=== PATIENT | female | born 1995 | race African-American/Black ===

== ENCOUNTER → 2018-09-28 11:00 | Outpatient (CLI) | payer MEDICAID, SELFPAY ==
[2018-09-28 10:59] VITALS: BMI 41.3
[2018-10-04 16:20] LABS: HPV Reflexed? NOT INDICATED
== END ==
PROVIDERS: Referring Provider Obstetrics & Gynecology; Visit Provider Obstetrics & Gynecology
DX: Z12.4 Encounter for screening for malignant neoplasm of cervix (principal)
CPT/HCPCS: 87624; 88175; G0145

== ENCOUNTER 2019-02-14 02:53 | Emergency (ER) | payer MEDICAID, SELFPAY ==
[2019-02-08 12:00] VITALS: BMI 41.3
[2019-02-14 02:54] VITALS: BP 154/91; PULSE 85; RESP 15; TEMP 37.1; O2SAT 100; BMI 39.4
--- NOTE | 2019-02-14 03:46 | ED.DCSUM_ITS ---
- ER Visit Summary Date of Service: 02/14/19 Chief Complaint: Right upper quadrant abdominal pain History of Present Illness: The patient is a 23 F there is no past medical history. No prior abdominal surgeries. Patient states tonight around 9 PM had mild right upper quadrant abdominal pain that resolved and then returned and was worse. Not associated with eating. No fever. Nausea but no vomiting or diarrhea. No melena. Last menstrual period was 01/21/2019. She denies any vaginal bleeding or discharge. No dysuria. No abdominal trauma. She has had pain like this before with a negative ultrasound 3 years ago. Physical Examination: Well-appearing young female. Vital signs are stable and afebrile. HEENT exam normal. Neck nontender. No lymphadenopathy. Lungs clear to auscultation bilaterally. Heart regular rhythm no murmur. Abdomen is soft and nontender. Normal bowel sounds no peritoneal signs. The entire abdomen is completely nontender. She has no epigastric or right upper quadrant tenderness. No Caldwell sign. No McBurney's point tenderness. Nondistended normal bowel sounds without hernias or masses. Patient is moving all 4 extremities. Back nontender. Neurologically she is awake and alert. Test Results: CBC shows no acute abnormality. White count of 7. Hemoglobin 13. BMP unremarkable. Normal creatinine and gap. Liver enzymes normal. Lipase normal at 190. Repeat exam the patient is doing well at 4:22 AM. Abdomen is benign. She feels fine. She will be discharged home with outpatient follow-up. Emergency Department Course and Treatment: Clinically the patient's exam is benign and nontender. Treatment Plan: Follow-up with outpatient primary care physician. She may need a repeat ultrasound of her gallbladder HIDA scan. Disposition: Discharge Impression: Right upper quadrant abdominal pain of uncertain etiology resolved This note was generated with Solyndra dictation software. It may contain incorrect words, spelling, and punctuation that were not noted in review of the chart prior to signing ED Disposition - Plan for ED Patient: Disposition: Home or Assisted Living Instructions: ED Abdominal Pain Unkn Cause Referrals: Opal Espinosa MD [Primary Care Provider] - 1-2 Weeks Additional Instructions: Return if feeling worse or develop a fever or worsening pain. Follow-up your primary care doctor they may have to do an ultrasound or HIDA scan to look for potential gallbladder disease. Your labs were unremarkable tonight.
[2019-02-14 03:58] LABS: Absolute Lymphocyte Count 3.12 X10^3/ul (0.83-4.51); Absolute Neutrophil Count 3.1 X10^3/uL (2.0-7.7); Basophil# 0.02 X10^3/uL; Basophil% 0.3 % (0-1); Eosinophil# 0.47 X10^3/uL; Eosinophils% 6.6 % (0-5); Hematocrit 40.5 % (37-47); Hemoglobin 13.5 g/dl (12.0-15.0); Lymphocyte # 3.12 X10^3/ul (4.0); Lymphocyte % 43.8 % (19-41); Mean Corp Hgb Conc 33.3 g/gl (32-36); Mean Corpuscular Hgb 28.6 pg (27.0-32.0); Mean Corpuscular Volume 85.8 fL (81-99); Mean Platelet Vol. 9.5 fl (6.2-12.0); Monocyte# 0.46 X10^3/uL; Monocyte% 6.5 % (0-10); Neutrophil # 3.05 X10^3/uL (2.7-7.7); Neutrophil % 42.7 % (47-70); Platelet Count 288 K/mm3 (150-450); RBC Distribution Width CV 12.9 % (11.6-14.6); RBC Distribution Width SD 39.9 fl (35.1-43.9); Red Blood Count 4.72 M/mm3 (4.2-5.4); White Blood Count 7.1 K/mm3 (4.4-11.0)
[2019-02-14 04:00] LABS: POSITIVE COUNT NO; POSITIVE DIFFERENTIAL NO; POSITIVE MORPHOLOGY NO
[2019-02-14 04:11] LABS: AST(SGOT) 14 U/L (15-37); Alanine Aminotransfer ALT/SGPT 25 U/L (13-56); Albumin, Serum 3.5 g/dL (3.2-5.0); Alkaline Phosphatase 60 U/L (45-117); Anion Gap 6 (5-15); BUN 13 mg/dL (7-18); Bilirubin, Direct 0.09 mg/dL (0.00-0.30); Calcium,Total 8.6 mg/dL (8.5-10.1); Chloride 109 mmol/L (98-107); Creatinine, Serum 0.56 mg/dL (0.55-1.02); EST Glomerular Filtration Rate 140 mL/min (>60); Est Glom Filt Rate - Afr Amer 170 mL/min (>60); Estimated Creatinine Clearance 146.26 ml/min; Globulin 3.3 g/dL (2.2-4.2); Glucose 101 mg/dL (74-106); Lipase 190 U/L (73-393); Potassium 3.9 mmol/L (3.5-5.1); Protein, Total 6.8 g/dL (6.4-8.2); Sodium Level 141 mmol/L (136-145)
[2019-02-14 04:38] VITALS: BP 134/94; PULSE 88; O2SAT 100
== END 2019-02-14 04:39 | disposition home or self-care (01) ==
PROVIDERS: Emergency Provider Emergency Medicine; Family Provider Internal Medicine; PCP Internal Medicine
DX: R10.11 Right upper quadrant pain (principal); R11.0 Nausea; Z79.899 Other long term (current) drug therapy
CPT/HCPCS: 80048; 80076; 83690; 85025; 99283; A4216

== ENCOUNTER → 2019-02-21 09:39 | Outpatient (CLI) | payer MEDICAID, SELFPAY ==
[2019-02-15 15:00] VITALS: BMI 39.4
--- NOTE | 2019-02-21 09:41 | US_ITS ---
STUDY: ABDOMINAL ULTRASOUND - RIGHT UPPER QUADRANT REASON FOR VISIT: Female, 23 years old. Right upper quadrant pain. TECHNIQUE: Ultrasound evaluation of the right upper quadrant was performed with real-time and static byers-scale imaging. TECHNICAL QUALITY: Limited. Examination limited due to obesity. COMPARISON: Previous ultrasound 01/28/2015. FINDINGS: Liver: The liver measures 15.1 cm. There is increased echogenicity consistent with fatty infiltration. The bile ducts are within normal limits. There is hepatic color flow. The direction of portal flow is hepatopetal. There is no demonstrated mass lesion. Gallbladder: In the gallbladder, extensive echoes are seen consistent with gallstones filling the lumen. Thickened wall measuring 8 mm. No tenderness. Common Bile Duct (C.B.D.): The common bile duct is not visualized. Pancreas: Normal size of the head, body and tail of the pancreas. There is normal echogenicity of the pancreas. There is no demonstrated pancreatic mass or cyst. Right Kidney: Normal size of the right kidney. The right kidney measures 12.1 cm. Normal renal cortex. The right cortex measures 2.1 cm. There is no demonstrated renal mass or cyst. There is no right hydronephrosis. US/Abdomen Limited IMPRESSION: Gallbladder is full of stones with a thickened wall. No tenderness. Electronically Signed: Michel Padilla MD at 17:48 EDT , Service support ,
[2019-02-21 10:52] LABS: Anion Gap 3 (5-15); BUN 9 mg/dL (7-18); BUN/Creat Ratio 15.3 RATIO (10-20); Calcium,Total 8.1 mg/dL (8.5-10.1); Chloride 110 mmol/L (98-107); Creatinine, Serum 0.59 mg/dL (0.55-1.02); EST Glomerular Filtration Rate 134 mL/min (>60); Est Glom Filt Rate - Afr Amer 163 mL/min (>60); Glucose 87 mg/dL (74-106); Potassium 3.9 mmol/L (3.5-5.1); Sodium Level 140 mmol/L (136-145)
== END ==
PROVIDERS: Family Provider Internal Medicine; PCP Internal Medicine; Referring Provider Nurse Practitioner Family; Visit Provider Nurse Practitioner Family
DX: I10 Essential (primary) hypertension (principal); R10.11 Right upper quadrant pain
CPT/HCPCS: 36415; 76705; 80048

== ENCOUNTER 2019-03-10 07:49 | Day surgery (SDC) | payer MEDICAID, SELFPAY ==
[2019-02-25 15:05] VITALS: BMI 39.4
[2019-03-08 11:09] VITALS: BMI 39.4
--- NOTE | 2019-03-10 07:58 | EKG12_ITS ---
Test Reason : PRE OP Blood Pressure : / mmHG Vent. Rate : 080 BPM Atrial Rate : 080 BPM P-R Int : 162 ms QRS Dur : 082 ms QT Int : 360 ms P-R-T Axes : 028 052 034 degrees QTc Int : 415 ms Normal sinus rhythm Normal ECG When compared with ECG of 09-NOV-2014 03:52, T wave amplitude has increased in Anterior leads Confirmed by PATRICK SORIANO ([id number]), editorial manager JOLEEN SIMON ([id number]) on 03/14/2019 2:40:58 PM Referred By: Jeremy Alonso Confirmed By:NIKITA SORIANO
[2019-03-10 08:09] LABS: Internal QC Validated? YES +Cl - CLEAR BKGD; Pregnancy, Urine Negative Negative
[2019-03-10 08:16] VITALS: BP 137/76; PULSE 79; RESP 14; TEMP 36.6; O2SAT 100; BMI 38.8
--- NOTE | 2019-03-10 08:41 | HP.PCM_ITS ---
Problem List (1) Right upper quadrant abdominal pain Status: Acute History and Physical Date of Admission: 03/10/19 Intake Vital Signs 02/25/19 Body Mass Index (BMI) 39.4 02/25/19 Height 5 ft 5 in 02/25/19 Weight: 240 lb 02/25/19 Body Mass Index (BMI) 39.9 02/25/19 Blood Pressure 151/104 H 02/25/19 Blood Pressure Location Rt brachial 02/25/19 Blood Pressure Position Sitting 02/25/19 Respiratory Rate 14 02/25/19 Pulse Rate 83 02/25/19 Pulse Source Monitor 02/25/19 Temperature 98.6 F 02/25/19 Temperature Source Oral 02/25/19 Pulse Ox 100 02/25/19 Oxygen Delivery Method room air Intake Visit Reasons: CHOLELITHIASIS, U/S @ [facility] Chief Complaint: FU [facility] ER - Pos Gallbladder Child Adolescent Psychiatrist Required: No Is patient in pain?: No Allergies No Known Allergies Allergy (Verified 02/25/19 15:01) Medications levonorgestrel 20 mcg/24 hours (5 yrs) 52 mg intrauterine device 1 insert INTRAUTERINE ONCE 09/28/18 [History Confirmed 02/25/19] phentermine 37.5 mg capsule 37.5 mg PO DAILY #30 cap 02/08/19 [Rx Confirmed 02/25/19] [facility] Medical History Right upper quadrant abdominal pain (Acute) History of pre-eclampsia (Acute) Cervical insufficiency during in third trimester, antepartum (Acute) BMI greater than 40 (Chronic) Surgical History History of tonsillectomy (Acute) History of cervical cerclage (Acute) Family History Mother Diabetes Hypertension Aunt Breast cancer Uncle Colon cancer Father Hypertension Social History Smoking Status: Never smoker alcohol intake: current details: social substance use type: does not use caffeine: Yes what type of physical activity do you participate in: none seatbelt use: always do you feel safe at home: Yes additional social history: Engaged- employed HPI HPI HPI: GUNNER NATION, is a 23 F who presents to the office today for HPI HPI HPI: GUNNER NATION, is a 23 F who presents to the office today for right upper quadrant pain. The patient reports that 3 years ago she was having problems with her right upper quadrant and had an ultrasound which only showed sludge. She says that recently she had one attack which lasted longer than her old attacks and it was in the right upper quadrant radiating to the back. She had nausea but no vomiting. She has not had any attacks since. She had a recent ultrasound which showed the gallbladder full of gallstones. ROS General General: No weight change or fatigue Cardio Cardiovascular: No murmur, pacemaker, heart disease, atrial fibrillation, high blood pressure, heart attack, heart stent, palpitations, shortness of breat with exertion or chest pain Psych Psychiatric: No depression or anxiety Resp Respiratory: No shortness of breath, No sleep apnea, No cough, No COPD, No asthma, No emphysema, No wheezing Gastro Gastrointestinal: No abdominal pain, No nausea or vomiting, No diarrhea, No constipation, No blood in stool, No acid reflux, No hemorrhoids, No ulcers, Yes gallbladder problem, No black,tarry stools Jose Hematologic: No blood thinners Exam Const General: cooperative Orientation: alert, oriented x3 Resp Effort & Inspection: normal respiratory effort Auscultation: clear to auscultation bilaterally Cardio Rate: regular rate Rhythm: regular rhythm Heart Sounds: no murmurs GI Inspection: non-distended Palpation: soft, nontender Assessment & Plan Problems 1. Calculus of gallbladder without cholecystitis without obstruction K80.20 Plan The patient has gallstones and biliary colic. I did offer her laparoscopic cholecystectomy. I discussed the procedure in detail with the patient. I discussed the risks, benefits, and alternatives of the procedure. I discussed the risks including but not limited to bleeding, infection, injury to surrounding organs such as the liver, bile duct, bowels. I did discuss the possibility of having to convert to an open procedure as well as the possibility that if any injuries occurred this may necessitate further surgery at a tertiary care center. Jeremy Alonso MD Pager: [facility] [address] [place] [address] Office:
--- NOTE | 2019-03-10 09:30 | GALL_PTH ---
PATIENT: GUNNER SIMON LOC[place] [facility] [place][id number] AGE/SX: 23/F ROOM: RE03/10/[address]: Dr. Jeremy Alonso MD : [id number] BED: DIS: 03/10/2019 SPEC #: [id number] RECD: 03/10/19 12:22 STATUS: NOREEN RANJIT #: [id number] FENG: 03/10/19 09:[address]: Jeremy Alonso DEPT: SURGICAL PATHOLOGY RECD BY: Brady Aguiar ENTERED: 03/10/19 13:38 SP TYPE: ROGELIO HERR DR: Dr. Opal Espinosa MD Tissues: Gallbladder, NOS Procedures: Surgery Specimen Level III HEADER OPERATION: Laparoscopic cholecystectomy with IOC PRE-OP DIAGNOSIS: Calculus of gallbladder without cholecystitis without obstruction TISSUE SUBMITTED: Gallbladder MICROSCOPIC DIAGNOSIS Gallbladder, cholecystectomy: Chronic cholecystitis and cholelithiasis. SJ:yesenia 03/11/19 MICROSCOPIC DESCRIPTION Slides are reviewed. GROSS DESCRIPTION Received is one container labeled with the patient's name and designated gallbladder. The specimen consists of a gallbladder measuring 8.5 cm in length and 2.5 cm in diameter. The external surface is pink-simmons, smooth and glistening for the most part. Focally it is granular, hemorrhagic and contains cautery artifact. The gallbladder contains a small amount of green-yellow mucoid bile and distended with multiple multifaceted yellowish-orange stones and stone fragments measuring in aggregate 6 x 6.5 x 1.5 cm and 0.3 to 0.5 cm in greatest dimension. One of the stones is also present at the cyst duct. The mucosa is bile-stained and without any mass lesions. The gallbladder wall measures 0.2 cm in thickness. Industrial Machine Assembler sections from the gallbladder and the cystic duct are submitted in one cassette. / SJ:yesenia 03/10/19 TC:4 CPT: 78345
--- NOTE | 2019-03-10 09:46 | RAD_ITS ---
STUDY: INTRAOPERATIVE CHOLANGIOGRAM. REASON FOR EXAM: Female, 23 years old. Laparoscopic cholecystectomy. FLUOROSCOPY TIME (if supplied): (0:38) minutes/seconds. TECHNIQUE: An intraoperative cholangiogram was performed by the surgeon. Imaging was submitted. COMPARISON: None. FINDINGS: The common bile duct is not dilated. No intraluminal filling defect is seen. There is free flow of contrast into the duodenum. RAD/Cholangiogram/ O R,Initial IMPRESSION: Unremarkable intraoperative quadrant. Electronically Signed: Anurag Sotelo, at 14:04 EDT , Service support ,
[2019-03-10] MEDS: Bupiv/Epi 0.25% 30 ML Vial (10:31)
--- NOTE | 2019-03-10 10:36 | PCM.OPRPT ---
Problem List (1) Right upper quadrant abdominal pain Status: Acute Report of Operation Date of Procedure: 03/10/19 Pre-Operative Diagnosis: Cholelithiasis Post-Operative Diagnosis: Same Surgery/Procedure Performed:: Laparoscopic cholecystectomy with intraoperative cholangiogram Specimen's removed: Gallbladder and contents Description of Procedure: After obtaining informed consent patient was brought back to the operating room. General anesthesia was induced. The abdomen was prepped and draped in usual sterile fashion. A small midline incision was made superior to the umbilicus and deepened to the level of fascia. The fascia was elevated and incised. Next the peritoneum was elevated and incised in the same fashion. Finger sweep was performed and the Weller trocar was placed into the abdomen. The balloon was inflated. The abdomen was inflated to 15 mmHg. Next a camera was introduced into the abdomen and the abdomen was inspected. Next under direct visualization three 5-mm ports were placed one subxiphoid and 2 subcostal. Next the gallbladder was elevated and retracted toward the right shoulder. The peritoneum was stripped from the gallbladder. The infundibulum was located and retracted laterally. Next the triangle of Calot was dissected and the cystic duct and cystic artery were identified. Cholangiograms were performed. The Smith clamp was used to clamp across the infundibulum and the catheter needle was inserted into the gallbladder. Under fluoroscopy contrast was instilled into the gallbladder and the common duct, cystic duct as well as proximal hepatic ducts were identified. There was good filling of the duodenum. There were no filling defects noted in the common bile duct. The clamp was removed as well as the needle and the infundibulum was grasped once more. Three hemolock clips were placed across the cystic duct. The cystic duct was then divided leaving 2 clips on the stump. The cystic artery was clipped and divided in the same fashion. The hook cautery was then used to take the gallbladder off of the gallbladder bed. Hemostasis was obtained. Gallbladder fossa was irrigated and no active bleeding or bile leakage was noted. Next the camera switched to a 5 mm camera and introduced in the subxiphoid port. An Endopouch bag was placed through the umbilical port and the gallbladder was placed into it. The gallbladder was then removed through the umbilical incision. The camera was then reinserted through the umbilical port. The gallbladder fossa was inspected once more and noted to be hemostatic with no leaking bile. The abdomen was suctioned dry. The 5 mm ports were removed under direct visualization. The umbilical port was then removed and the air was removed from the abdomen. Next using an 0 Vicryl suture the umbilical fascia was closed in a [id number] fashion. The umbilical port site was irrigated local anesthetic was administered to all the incisions. All the incisions were closed with interrupted subcuticular 4-0 Monocryl sutures followed by Steri-Strips and dressings. The patient was awoken and taken to PACU in stable condition. - Admit VTE Documentation VTE Mechan Device Prophylaxis: SCD's
--- NOTE | 2019-03-10 10:40 | DCINST_ITS ---
Discharge Diet: Light diet - advance as tolerated Discharge Activity: Return to Normal Activity, May Not Drive - for 2-3 days or while taking narcotic pain medicataions., - - Do not drive, work heavy equipment or sign legal documents for 24 hours. May shower in (days): 1 - with the bandage in place. Lifting Restrictions: 20 lbs for 2 weeks Additional Activity Instructions:: Pain medication may cause nausea. You should typically eat light foods as you take your pain medications. Pain medication may also cause constipation. If this is a problem for you, please discuss with your doctor. Call your doctor if your incision/area has: Continuous Slow Oozing, Sudden Increased Bleeding, Increased Pain/ Swelling, Increased Redness, Foul Smelling Discharge, Fever of 101 or Higher Call your doctor if you observe: Fever of 101 or Higher Suture Line Care: Avoid Pulling/Pushing, Avoid Pinching/Bending Additional Dressing/Incision Instructions:: Leave operative bandaids on for 2 days. When you remove dressing, leave Steri-Strips on until your follow-up appointment, or until the Steri-Strips fall off on their own. Allergies/Adverse Reactions: Allergies No Known Allergies Allergy (Verified 03/01/19 11:04) Medications to take at Discharge levonorgestrel 20 mcg/24 hours (5 yrs) 52 mg intrauterine device 1 insert INTRAUTERINE ONCE 09/28/18 blood pressure monitor kit See Dose Instructions .ROUTE .MEDSUPPLY #1 ea 03/01/19 labetalol 100 mg tablet 100 mg PO BID tab 03/08/19 Oxycodone HCl/Acetaminophen [Percocet 5/325] 1 - 2 tablet PO Q4H PRN PRN 7 Days #30 tablet 03/10/19 The following prescriptions were given: Oxycodone HCl/Acetaminophen [Percocet 5/325] 1 - 2 tablet PO Q4H PRN PRN 7 Days #30 tablet PRN Reason: Pain Primary Care Physician: Opal Espinosa MD [Primary Care Provider] - Test Results: Test results from this visit will be discussed in further detail at your follow- up appointment, if applicable. Please Follow Up With: Jeremy Alonso MD When: Please call to schedule 2 week follow up appointment. [phone]
[2019-03-10 10:54] VITALS: BP 137/76; BP 141/83; PULSE 84; RESP 16; TEMP 36.2; O2SAT 96
[2019-03-10 11:00] VITALS: BP 137/76; BP 138/81; PULSE 79; RESP 16; O2SAT 97
[2019-03-10 11:15] VITALS: BP 133/80; BP 137/76; PULSE 72; RESP 16; O2SAT 99
[2019-03-10 11:30] VITALS: BP 130/69; BP 137/76; PULSE 70; RESP 16; TEMP 36.2; O2SAT 99
[2019-03-10] MEDS: Acetaminophen 325 MG Tablet PO (12:13)
[2019-03-10] MEDS: oxyCODONE 5 MG Tablet PO (12:13)
[2019-03-10 13:40] VITALS: BP 114/55; BP 137/76; PULSE 77; RESP 18; TEMP 36.3; O2SAT 100
== END 2019-03-10 13:45 | disposition home or self-care (01) ==
LOC: SDC 07:51 → AC 07:52
PROVIDERS: Anesthesiology; Family Provider Internal Medicine; PCP Internal Medicine; Referring Provider Surgery; Visit Provider Surgery
PROC: (CPT 47610; principal; 2019-03-10 09:10)
DX: K80.10 Calculus of gallbladder with chronic cholecystitis without obstruction (principal); I10 Essential (primary) hypertension; Z79.899 Other long term (current) drug therapy
CPT/HCPCS: 47563; 74300; 76000; 81025; 88304; 93005; J7120; J2405

== ENCOUNTER → 2019-06-29 17:09 | Outpatient (CLI) | payer OTHER, SELFPAY ==
[2019-06-29 13:34] VITALS: BMI 38.8
[2019-06-29 20:31] LABS: Chlamydia Trachomatis by PCR Negative (Negative); Neisserai gonorrhoeae by PCR Negative (Negative); Probe Check PASS; Sample Adequacy Control PASS; Specimen Processing Control PASS
[2019-07-04 13:18] LABS: HSV Culture Without Typing Positive (.)
== END ==
PROVIDERS: Family Provider Internal Medicine; PCP Internal Medicine; Referring Provider Nurse Practitioner Women's Health; Visit Provider Nurse Practitioner Women's Health
DX: N90.89 Other specified noninflammatory disorders of vulva and perineum (principal)
CPT/HCPCS: 87255; 87491; 87591

== ENCOUNTER → 2020-01-16 12:16 | Outpatient (CLI) | payer MEDICAID, SELFPAY ==
[2020-01-16 12:08] VITALS: BMI 38.8
[2020-01-16 12:58] LABS: Absolute Lymphocyte Count 2.71 X10^3/uL (0.83-4.51); Basophil# 0.04 X10^3/uL; Basophil% 0.5 % (0-1); Eosinophil# 1.06 X10^3/uL; Hematocrit 40.2 % (37-47); Hemoglobin 13.2 g/dL (12.0-15.0); Lymphocyte # 2.71 X10^3/ul (4.0); Lymphocyte % 33.1 % (19-41); Mean Corp Hgb Conc 32.8 g/dL (32-36); Mean Corpuscular Hgb 28.9 pg (27.0-32.0); Mean Platelet Vol. 9.1 fl (6.2-12.0); Monocyte# 0.39 X10^3/uL; Monocyte% 4.8 % (0-10); NRBC Flagged by Analyzer 0 % (0-5); Neutrophil # 3.96 X10^3/uL (2.7-7.7); Neutrophil % 48.4 % (47-70); Platelet Count 290 K/mm3 (150-450); RBC Distribution Width CV 13.1 % (11.6-14.6); RBC Distribution Width SD 41.8 fl (35.1-43.9); Red Blood Count 4.57 M/mm3 (4.2-5.4); White Blood Count 8.2 K/mm3 (4.4-11.0)
[2020-01-16 13:26] LABS: ALB/GLOB Ratio 0.9 RATIO (0.9-2.4); AST(SGOT) 19 U/L (15-37); Alanine Aminotransfer ALT/SGPT 36 U/L (13-56); Albumin, Serum 3.5 g/dL (3.2-5.0); Alkaline Phosphatase 63 U/L (45-117); Anion Gap 5 (5-15); BUN 7 mg/dL (7-18); BUN/Creat Ratio 10.9 RATIO (10-20); Calcium,Total 8.5 mg/dL (8.5-10.1); Chloride 110 mmol/L (98-107); Creatinine, Serum 0.64 mg/dL (0.55-1.02); EST Glomerular Filtration Rate 120 mL/min (>60); Est Glom Filt Rate - Afr Amer 145 mL/min (>60); Globulin 3.7 g/dL (2.2-4.2); Glucose 125 mg/dL (74-106); Glucose Challenge Gest 1H 50g 125 mg/dL (70-140); Potassium 3.6 mmol/L (3.5-5.1); Protein, Total 7.2 g/dL (6.4-8.2); Sodium Level 140 mmol/L (136-145)
[2020-01-16 13:33] LABS: Hemoglobin A1c 5.5 % (4.2-6.3)
[2020-01-16 13:58] LABS: HIV - WCH Non-Reactive (Nonreactive); Hepatitis B Surface Antigen Non-Reactive (Nonreactive); Hepatitis C Antibody Non-Reactive (Nonreactive); Rubella IgG 86.9 IU/mL
[2020-01-16 16:04] LABS: Protein, Urine (Random) 6.4 mg/dL (<11.9); Protein:Creat Ratio 107 mg/g CRE (0-200)
[2020-01-16 16:06] LABS: Amphetamine Urine VISTA NEGATIVE (<1000 ng/mL); Barbiturate Urine VISTA NEGATIVE (< 200 ng/mL); Benzodiazepine Urine VISTA NEGATIVE (< 200 ng/mL); Cocaine Urine VISTA NEGATIVE (< 300 ng/mL); Ecstacy Urine VISTA NEGATIVE (< 500 ng/mL); Methadone Urine VISTA NEGATIVE (< 300 ng/mL); PCP Urine VISTA NEGATIVE (< 25 ng/mL); THC Urine VISTA NEGATIVE (< 50 ng/mL); Vista UDS pH Range 6
[2020-01-16 18:00] LABS: Chlamydia Trachomatis by PCR Negative (Negative); Neisserai gonorrhoeae by PCR Negative (Negative); Probe Check PASS; Sample Adequacy Control PASS; Specimen Processing Control PASS
[2020-01-19 02:09] LABS: Rapid Plasmin Reagin (RPR) NONREACTIVE (NONREACTIVE)
== END ==
PROVIDERS: PCP Internal Medicine; Referring Provider Obstetrics & Gynecology; Visit Provider Obstetrics & Gynecology
DX: O09.90 Supervision of high risk pregnancy, unspecified, unspecified trimester (principal); O10.919 Unspecified pre-existing hypertension complicating pregnancy, unspecified trimester; O09.299 Supervision of pregnancy with other poor reproductive or obstetric history, unspecified trimester; Z3A.00 Weeks of gestation of pregnancy not specified; Z86.32 Personal history of gestational diabetes
CPT/HCPCS: 36415; 80053; 80307; 82570; 82950; 83036; 84156; 85025; 86592; 86703; 86762; 86803; 86850; 86900; 86901; 87086; 87088; 87340; 87491; 87591

== ENCOUNTER → 2020-01-19 09:11 | Outpatient (CLI) | payer MEDICAID, SELFPAY ==
[2020-01-16 12:08] VITALS: BMI 38.8
--- NOTE | 2020-01-19 09:16 | US_ITS ---
STUDY: FIRST TRIMESTER OBSTETRICAL ULTRASOUND REASON FOR EXAM: Female, 24 years old viability LMP: November 22, 2019. TECHNIQUE: Transvaginal TECHNICAL QUALITY: Adequate. PRIOR ULTRASOUND: None. FINDINGS: There is visualization of a single gestational sac in a normal intrauterine position. The mean sac diameter (MSD) measures 1.1 cm, indicating an estimated gestational age (EGA) of 5 weeks, 5 days. The gestational sac shape is within normal limits. There is a visualized yolk sac. The yolk sac measures 2 mm. The placenta is non-visualized. There is visualization of a live embryo. The crown-rump length (CRL) measures 7 mm, indicating an estimated gestational age (EGA) of 6 weeks, 4 days. There is demonstrated cardiac activity with a heart rate of 92 bpm. The estimated gestation age (EGA) by LMP is 8 weeks, 2 days. The estimated date of delivery (JANES) by LMP is August 28, 2020. The estimated gestation age (EGA) by US is 6 weeks, 1 days. The estimated date of delivery (JANES) by US is September 12, 2020. The uterus measures 10 cm x 5.1 cm x 4.9 cm. There is no demonstrated uterine fibroid. The cervix is closed. The right ovary is not visualized. The left ovary measures 2.9 cm x 1.8 cm x 2.1 cm. There is no left ovarian cyst. There is no visualized left adnexal mass or complex lesion. There is no fluid in the cul de sac. US/Transvaginal w/Preg US IMPRESSION: Single live intrauterine gestation with a mean gestational age of 6 weeks and 1 day. Electronically Signed: Anurag Sotelo, at 11:13 EDT , Service support ,
== END ==
PROVIDERS: PCP Internal Medicine; Referring Provider Obstetrics & Gynecology; Visit Provider Obstetrics & Gynecology
DX: O20.0 Threatened abortion (principal); Z3A.01 Less than 8 weeks gestation of pregnancy
CPT/HCPCS: 76817

== ENCOUNTER 2020-01-23 15:13 | Emergency (ER) | payer MEDICAID, SELFPAY ==
[2020-01-23 14:56] VITALS: BMI 38.8
[2020-01-23 15:15] VITALS: BP 166/96; PULSE 82; RESP 16; TEMP 36.9; O2SAT 99; BMI 44.5
--- NOTE | 2020-01-23 15:39 | ED.DCSUM_ITS ---
History of Present Illness Chief Complaint: Vag Bld, Preg Informant: Patient Issue: Vaginal bleeding Onset: Weeks - 1 Timing: Waxes and wanes Current Severity: Mild Maximum Severity: Heavy - yesterday Associated Symptoms: Negative for: Dysuria, Frequency, Urgency, Hematuria Test: Positive Sexually: Single Partner P: 1 Ab: 2 Narrative: Patient states she is 7-8 weeks , last normal menstrual period started 11/22/2019, she sees Dr. Metzger. She has been seen in the past week twice since this bleeding started, the first time ultrasound showed what appeared to be an intrauterine but no heartbeat, and she went back on and they saw the heartbeat with an IUP. She had a lot of bleeding yesterday on Thursday and today it has tapered down, her OB was not in the office so the staff directed her to the ER. Her blood type is a positive, as confirmed by blood bank data. She denies any pain, lightheadedness, urinary symptoms, nausea/vomiting. - Past Medical History (1) Genital herpes Status: Chronic Comment: Needs Valtrex starting at 36 weeks (2) History of gestational diabetes in prior , currently Status: Chronic Comment: 1 hour glucola given at NOB (3) History of pre-eclampsia Status: Chronic Comment: 81 mg at 14 weeks (4) Chronic hypertension affecting Status: Chronic Comment: start labetalol 100 BID, home bps, baseline urine PCR, CMP, EKG Past Medical History - Allergies and Home Meds Allergies/Adverse Reactions: Allergies No Known Allergies Allergy (Verified 01/23/20 15:14) Primary Care Physician: Opal Espinosa MD [Primary Care Provider] - Smoking Status: Never smoker Review of Systems General: Denies: Chills, Fever, Sweats Eyes: Denies: Visual changes - bilaterally, Diplopia ENT: Denies: Rhinorrhea, Sore throat Cardiovascular: Denies: Chest pain, Palpitations Respiratory: Denies: Dyspnea, Cough, Dyspnea on exertion Gastrointestinal: Denies: Abdominal pain, Nausea, Vomiting, Diarrhea, Melena, Hematochezia Genitourinary: Reports: - - Vaginal bleeding. Denies: Dysuria, Hematuria, Frequency Musculoskeletal: Denies: Neck pain, Back pain, Extremity Pain Skin: Denies: Rash, Wounds Neurological: Denies: Headache, Weakness, Numbness Physical Exam Vital Signs/Narrative: Vital Signs Temp Pulse Resp BP Pulse Ox 01/23/20 15:15 98.4 F 82 16 166/96 H 99 Inital Vital Signs reviewed: Yes General: Well nourished, Well developed, Obese, - - Well-appearing, no distress Head: Normocephalic, Atraumatic Neck: Supple, Nontender Cardiovascular: Regular rate, Regular rhythm, No murmurs. Negative for: Tachycardia Respiratory: No distress, CTA bilaterally, Chest nontender Abdomen: Soft, Nontender, Nondistended, Normal bowel sounds Back: Nontender, Normal Inspection, CVA tenderness Extremities: Nontender, No edema Skin: Normal color, No rash, No Trauma Neurological: Alert, Oriented x3, Cranial nerves II-XII grossly intact, Normal Strength, Normal Sensation, Normal Gait Psychological: Normal affect, Normal Mood Diagnostic/Tx/Re-eval - Medical Decision/Diagnostic Studies I performed a bedside ultrasound with the screening ED ultrasound, I can see an obvious double decidua signed, a gestational sac, however I see no pole or yolk sac. Differential includes completed and early that is too small to see with this ultrasound. I discussed all this with the patient, and advised that the important thing here is that she does not have an ectopic , and does not have any life-threatening bleeding, her vital signs are normal, and she does not need RhoGam. Therefore she is stable to follow-up with her job service specialist. I discussed with Dr. Metzger, she agrees she is stable for follow-up as an outpatient within the next couple days, she should return to the ER if she bleeds more than 2 pads an hour for couple hours, and I will try to set the patient up for an outpatient ultrasound. ED Disposition - Plan for ED Patient: Disposition: Home or Assisted Living Diagnosis: Vaginal bleeding in patient at less than 20 weeks gestation Instructions: POSSIBLE MISCARRIAGE (Threatened ) Referrals: Kaitlynn Metzger MD [STAFF PHYSICIAN] - (1-3 days, call for appointment)
== END 2020-01-23 16:40 | disposition home or self-care (01) ==
PROVIDERS: Emergency Provider Emergency Medicine; PCP Internal Medicine
DX: O20.9 Hemorrhage in early pregnancy, unspecified (principal); O10.911 Unspecified pre-existing hypertension complicating pregnancy, first trimester; O98.311 Other infections with a predominantly sexual mode of transmission complicating pregnancy, first trimester; A60.09 Herpesviral infection of other urogenital tract; O99.211 Obesity complicating pregnancy, first trimester; E66.9 Obesity, unspecified; Z3A.08 8 weeks gestation of pregnancy; Z87.59 Personal history of other complications of pregnancy, childbirth and the puerperium
CPT/HCPCS: 99282

== ENCOUNTER → 2020-01-23 17:05 | Outpatient (CLI) | payer MEDICAID, SELFPAY ==
[2020-01-23 15:15] VITALS: BMI 44.5
--- NOTE | 2020-01-23 17:08 | US_ITS ---
STUDY: FIRST TRIMESTER OBSTETRICAL ULTRASOUND REASON FOR EXAM: Female, 24 years old. Bleeding. LMP: November 22, 2019 TECHNIQUE: Transvaginal TECHNICAL QUALITY: Adequate. PRIOR ULTRASOUND: None. FINDINGS: There is visualization of a single gestational sac in a normal intrauterine position. The mean sac diameter (MSD) measures 1.32 cm, indicating an estimated gestational age (EGA) of 6 weeks, 1 days. The gestational sac shape is within normal limits. There is a visualized yolk sac. The yolk sac measures 0.27 cm. The placenta is non-visualized. There is visualization of an embryo within the gestational sac. The crown-rump length (CRL) measures 0.77 cm, indicating an estimated gestational age (EGA) of 6 weeks, 5 days. There is no demonstrated cardiac activity. The estimated gestation age (EGA) by LMP is 8 weeks, 6 days. The estimated date of delivery (JANES) by LMP is August 28, 2020. The estimated gestation age (EGA) by US is 6 weeks, 3 days. The estimated date of delivery (JANES) by US is September 14, 2020. The uterus measures 10.2 x 5.7 x 5.0 cm. There is no demonstrated uterine fibroid. The cervix is closed. The right ovary measures 2.4 x 1.9 x 1.5 cm. There is no right ovarian cyst. There is no visualized right adnexal mass or complex lesion. The left ovary measures 3.5 x 2.0 x 2.2 cm. There is no left ovarian cyst. There is no visualized left adnexal mass or complex lesion. There is no fluid in the cul de sac. US/Transvaginal w/Preg US IMPRESSION: 1. Single intrauterine at 6 weeks, 3 days. There is no detected cardiac activity. demise versus early . Follow-up recommended. 2. Normal ovaries. Electronically Signed: Ezio Mauricio DO at 22:37 EDT Tel [phone], Service support ,
== END ==
PROVIDERS: PCP Internal Medicine; Referring Provider Emergency Medicine; Visit Provider Emergency Medicine
DX: O20.9 Hemorrhage in early pregnancy, unspecified (principal); O10.911 Unspecified pre-existing hypertension complicating pregnancy, first trimester; O98.311 Other infections with a predominantly sexual mode of transmission complicating pregnancy, first trimester; O99.211 Obesity complicating pregnancy, first trimester; E66.9 Obesity, unspecified; Z3A.08 8 weeks gestation of pregnancy; Z87.59 Personal history of other complications of pregnancy, childbirth and the puerperium
CPT/HCPCS: 76817; 99282

== ENCOUNTER → 2020-01-24 11:56 | Outpatient (CLI) | payer MEDICAID, SELFPAY ==
[2020-01-23 15:15] VITALS: BMI 44.5
[2020-01-24 13:47] LABS: hCG Titer Quant., Serum 5777 mIU/mL (1-3)
== END ==
PROVIDERS: PCP Internal Medicine; Referring Provider Nurse Practitioner Women's Health; Visit Provider Nurse Practitioner Women's Health
DX: O03.9 Complete or unspecified spontaneous abortion without complication (principal)
CPT/HCPCS: 36415; 84702

== ENCOUNTER → 2020-06-01 | Outpatient (CLI) | payer MEDICAID, SELFPAY ==
[2020-06-01 13:48] VITALS: BMI 46.5
[2020-06-01 17:48] LABS: Amphetamine Urine VISTA NEGATIVE (<1000 ng/mL); Barbiturate Urine VISTA NEGATIVE (< 200 ng/mL); Benzodiazepine Urine VISTA NEGATIVE (< 200 ng/mL); Cocaine Urine VISTA NEGATIVE (< 300 ng/mL); Ecstacy Urine VISTA POSITIVE (< 500 ng/mL); Methadone Urine VISTA NEGATIVE (< 300 ng/mL); PCP Urine VISTA NEGATIVE (< 25 ng/mL); THC Urine VISTA NEGATIVE (< 50 ng/mL); Vista UDS pH Range 6
[2020-06-01 18:42] LABS: Chlamydia Trachomatis by PCR Negative (Negative); Neisserai gonorrhoeae by PCR Negative (Negative); Probe Check PASS; Sample Adequacy Control PASS; Specimen Processing Control PASS
== END | disposition home or self-care (01) ==
LOC: LABSPEC 16:25
PROVIDERS: PCP Internal Medicine; Referring Provider Obstetrics & Gynecology; Visit Provider Obstetrics & Gynecology
DX: O09.90 Supervision of high risk pregnancy, unspecified, unspecified trimester (principal); Z3A.00 Weeks of gestation of pregnancy not specified
CPT/HCPCS: 80307; 87086; 87088; 87491; 87591

== ENCOUNTER → 2020-06-12 11:16 | Outpatient (CLI) | payer MEDICAID, SELFPAY ==
[2020-06-01 13:48] VITALS: BMI 46.5
[2020-06-12 12:16] LABS: Absolute Lymphocyte Count 2.42 X10^3/uL (0.83-4.51); Absolute Neutrophil Count 4.8 X10^3/uL (2.0-7.7); Basophil# 0.02 X10^3/uL; Basophil% 0.3 % (0-1); Eosinophil# 0.27 X10^3/uL; Eosinophils% 3.4 % (0-5); Glucose Challenge Gest 1H 50g 168 mg/dL (70-140); Hematocrit 36.6 % (37-47); Lymphocyte # 2.42 X10^3/ul (4.0); Lymphocyte % 30.5 % (19-41); Mean Corp Hgb Conc 32.8 g/dL (32-36); Mean Corpuscular Hgb 28.8 pg (27.0-32.0); Mean Corpuscular Volume 87.8 fL (81-99); Monocyte# 0.39 X10^3/uL; Monocyte% 4.9 % (0-10); NRBC Flagged by Analyzer 0 % (0-5); Neutrophil % 60.5 % (47-70); Platelet Count 276 K/mm3 (150-450); RBC Distribution Width CV 12.8 % (11.6-14.6); RBC Distribution Width SD 40.7 fl (35.1-43.9); Red Blood Count 4.17 M/mm3 (4.2-5.4); White Blood Count 7.9 K/mm3 (4.4-11.0)
[2020-06-12 12:37] LABS: Amphetamine Urine VISTA NEGATIVE (<1000 ng/mL); Barbiturate Urine VISTA NEGATIVE (< 200 ng/mL); Benzodiazepine Urine VISTA NEGATIVE (< 200 ng/mL); Cocaine Urine VISTA NEGATIVE (< 300 ng/mL); Ecstacy Urine VISTA POSITIVE (< 500 ng/mL); Methadone Urine VISTA NEGATIVE (< 300 ng/mL); PCP Urine VISTA NEGATIVE (< 25 ng/mL); THC Urine VISTA NEGATIVE (< 50 ng/mL); Vista UDS pH Range 5
[2020-06-12 13:01] LABS: HIV - WCH Non-Reactive (Nonreactive); Hepatitis B Surface Antigen Non-Reactive (Nonreactive); Hepatitis C Antibody Non-Reactive (Nonreactive); Rubella IgG 84.8 IU/mL
[2020-06-12 14:18] LABS: NATERA MAILED SPECIMEN
[2020-06-14 02:04] LABS: Rapid Plasmin Reagin (RPR) NONREACTIVE (NONREACTIVE)
== END ==
PROVIDERS: PCP Internal Medicine; Referring Provider Obstetrics & Gynecology; Visit Provider Obstetrics & Gynecology
DX: O09.90 Supervision of high risk pregnancy, unspecified, unspecified trimester (principal); Z3A.00 Weeks of gestation of pregnancy not specified; Z31.430 Encounter of female for testing for genetic disease carrier status for procreative management
CPT/HCPCS: 36415; 80307; 82950; 85025; 86592; 86703; 86762; 86803; 86850; 86900; 86901; 87340

== ENCOUNTER → 2020-06-19 09:48 | Outpatient (CLI) | payer MEDICAID, SELFPAY ==
[2020-06-01 13:48] VITALS: BMI 46.5
[2020-06-19 11:12] LABS: Glucose GTT-Gestation. Fasting 90 mg/dL (<105)
[2020-06-19 12:00] LABS: Glucose GTT-Gestational 1 Hr 185 mg/dL (<190)
[2020-06-19 13:17] LABS: Glucose GTT-Gestational 2 Hr 179 mg/dL (<165)
[2020-06-19 15:25] LABS: Glucose GTT-Gestational 3 Hr 88 L (<145)
== END ==
PROVIDERS: PCP Internal Medicine; Referring Provider Obstetrics & Gynecology; Visit Provider Obstetrics & Gynecology
DX: O99.810 Abnormal glucose complicating pregnancy (principal); Z3A.00 Weeks of gestation of pregnancy not specified
CPT/HCPCS: 36415; 82951; 82952

== ENCOUNTER 2020-08-06 11:30 | Outpatient (RCR) | payer MEDICAID, SELFPAY ==
[2020-06-01 13:48] VITALS: BMI 46.5
[2020-06-29 15:26] VITALS: BMI 46.5
== END 2020-08-08 23:59 ==
LOC: DC 11:30
PROVIDERS: PCP Internal Medicine; Visit Provider Obstetrics & Gynecology
DX: Z71.3 Dietary counseling and surveillance (principal); O24.419 Gestational diabetes mellitus in pregnancy, unspecified control; Z3A.00 Weeks of gestation of pregnancy not specified
CPT/HCPCS: 97802

== ENCOUNTER 2020-08-13 15:23 | Outpatient (RCR) | payer MEDICAID, SELFPAY ==
[2020-08-02 09:09] VITALS: BMI 46.5
[2020-08-09 10:00] VITALS: BMI 46.5
== END 2020-09-08 23:59 ==
LOC: DC 15:23
PROVIDERS: PCP Internal Medicine; Visit Provider Obstetrics & Gynecology
DX: Z71.3 Dietary counseling and surveillance (principal); O24.419 Gestational diabetes mellitus in pregnancy, unspecified control; Z3A.00 Weeks of gestation of pregnancy not specified

== ENCOUNTER → 2020-09-20 13:43 | Outpatient (CLI) | payer MEDICAID, SELFPAY ==
[2020-09-20 13:21] VITALS: BMI 47.7
[2020-09-20 13:56] LABS: Absolute Lymphocyte Count 2.29 X10^3/uL (0.83-4.51); Basophil# 0.02 X10^3/uL; Basophil% 0.2 % (0-1); Eosinophil# 0.12 X10^3/uL; Eosinophils% 1.3 % (0-5); Hematocrit 36.6 % (37-47); Hemoglobin 11.5 g/dL (12.0-15.0); Lymphocyte # 2.29 X10^3/ul (4.0); Lymphocyte % 24.9 % (19-41); Mean Corp Hgb Conc 31.4 g/dL (32-36); Mean Corpuscular Hgb 27.9 pg (27.0-32.0); Mean Corpuscular Volume 88.8 fL (81-99); Mean Platelet Vol. 9.1 fl (6.2-12.0); Monocyte# 0.72 X10^3/uL; Monocyte% 7.8 % (0-10); NRBC Flagged by Analyzer 0 % (0-5); Neutrophil # 5.99 X10^3/uL (2.7-7.7); Neutrophil % 65.4 % (47-70); Platelet Count 318 K/mm3 (150-450); RBC Distribution Width CV 12.8 % (11.6-14.6); RBC Distribution Width SD 41.6 fl (35.1-43.9); Red Blood Count 4.12 M/mm3 (4.2-5.4); White Blood Count 9.2 K/mm3 (4.4-11.0)
[2020-09-20 14:21] LABS: ALB/GLOB Ratio 0.7 RATIO (0.9-2.4); AST(SGOT) 20 U/L (15-37); Alanine Aminotransfer ALT/SGPT 34 U/L (13-56); Albumin, Serum 2.7 g/dL (3.2-5.0); Alkaline Phosphatase 71 U/L (45-117); Anion Gap 4 (5-15); BUN 6 mg/dL (7-18); BUN/Creat Ratio 10.6 RATIO (10-20); Calcium,Total 8.7 mg/dL (8.5-10.1); Chloride 109 mmol/L (98-107); Creatinine, Serum 0.57 mg/dL (0.55-1.02); EST Glomerular Filtration Rate 138 mL/min (>60); Est Glom Filt Rate - Afr Amer 167 mL/min (>60); Globulin 4.1 g/dL (2.2-4.2); Glucose 96 mg/dL (74-106); Potassium 4.1 mmol/L (3.5-5.1); Protein, Total 6.8 g/dL (6.4-8.2); Sodium Level 138 mmol/L (136-145)
== END ==
PROVIDERS: PCP Internal Medicine; Referring Provider Obstetrics & Gynecology; Visit Provider Obstetrics & Gynecology
DX: O10.919 Unspecified pre-existing hypertension complicating pregnancy, unspecified trimester (principal); Z3A.00 Weeks of gestation of pregnancy not specified
CPT/HCPCS: 36415; 80053; 85025

== ENCOUNTER → 2020-10-08 | Outpatient (CLI) | payer MEDICAID, SELFPAY ==
[2020-09-28 09:58] VITALS: BMI 47.3
== END | disposition home or self-care (01) ==
LOC: LABSPEC 18:11
PROVIDERS: PCP Internal Medicine; Referring Provider Obstetrics & Gynecology; Visit Provider Obstetrics & Gynecology
DX: U07.1 COVID-19 (principal)
CPT/HCPCS: 87635; C9803; U0003

== ENCOUNTER 2020-10-16 22:41 | Observation (INO) | payer MEDICAID, SELFPAY ==
[2020-09-28 09:58] VITALS: BMI 47.3
[2020-10-16 22:42] VITALS: BP 155/75; PULSE 135; RESP 16; TEMP 36.5; O2SAT 99; BMI 46.3
--- NOTE | 2020-10-16 23:21 | EKG12_ITS ---
Test Reason : DYSRHYTHMIA Blood Pressure : / mmHG Vent. Rate : 132 BPM Atrial Rate : 132 BPM P-R Int : 136 ms QRS Dur : 076 ms QT Int : 302 ms P-R-T Axes : 053 070 019 degrees QTc Int : 447 ms Sinus tachycardia Otherwise normal ECG Confirmed by GEETA HURT, LESVIA ([id number]), make up editor ZAID AWAN ([id number]) on 10/19/2020 2:02:23 PM Referred By: PATRICE Confirmed By:LESVIA CONNOR MD
--- NOTE | 2020-10-16 23:22 | ED.VIS.GEN ---
History of Present Illness Chief Complaint: Palpitations Informant: Patient Narrative: She stated couple hours ago she noted she had palpitations. She has had this remotely with anxiety attack. She does not feel anxious however. She has noticed her heart was beating fast tonight. She denies any chest pain or shortness of breath. Happened while she was watching a movie. She is 29 weeks . She has gestational diabetes and -induced hypertension. She is on medications for this. She did not take her labetalol this evening. She takes another antihypertensive as well. She is not on insulin therapy and has been controlling her diabetes with diet. No pulmonary embolism risk factors other than the fact that she is 29 weeks . She did however just get over coronavirus quarantine. She had only loss of smell and taste symptoms. No leg pain or swelling to suggest a DVT. No cardiac history per patient. Normal blood pressures 130s over 90s per patient. This is her fourth . - Past Medical History (1) COVID-19 affecting , antepartum Status: Acute Comment: growth US and baby ASA (2) Cervical insufficiency during , antepartum Status: Acute Comment: M consult for cerclage placement. prophylactic cerclage placement 12-13 wks. TVCL 1 wk after cerclage placement; progesterone injections recommended, CL 42.8mm 08/02 US (3) Genital HSV Status: Acute Comment: plan acyclovir at 36 weeks (4) Gestational diabetes Status: Acute Comment: dianosed 1TM. endocrine following. diet controlled. (5) History of pre-eclampsia Status: Acute Comment: APL testing ordered, plan 81mg asa at 14 weeks. baseline labs. (6) Obesity affecting Status: Acute Comment: 1 tm glucola abnl. encourage healthy weight gain in . (7) Status: Acute Comment: NIPT low risk, carrier screening neg for . anatomy normal with FU @2 wks for addtl views (8) Supervision of high-risk Status: Acute Comment: PRR JANES [birth year] girl Ross NEWTON Hernandes (Lisy Mata) Dilip (9) Chronic hypertension affecting Status: Chronic Comment: procardia and labetalol. well controlled. baseline labs ordered, EKG. growth us q 4 weeks after 28 and weekly nst/ramya after 32 and deliver at 38 NL US 08/30 Past Medical History - Allergies and Home Meds Allergies/Adverse Reactions: Allergies No Known Allergies Allergy (Verified 10/16/20 22:45) Primary Care Physician: Opal Espinosa MD [Primary Care Provider] - Prior records reviewed: Yes Past Medical History: - - See problem list Surgical History: - - Reviewed Lives: With Family Smoking Status: Never smoker Alcohol: None Drugs: None Review of Systems General: Denies: Chills, Fever, Sweats Eyes: Denies: Visual changes - bilaterally, Diplopia ENT: Denies: Rhinorrhea, Sore throat Cardiovascular: Reports: Heart racing. Denies: Chest pain Respiratory: Denies: Dyspnea, Cough, Dyspnea on exertion Gastrointestinal: Denies: Abdominal pain, Nausea, Vomiting, Diarrhea, Melena, Hematochezia Genitourinary: Denies: Dysuria, Hematuria, Frequency Musculoskeletal: Denies: Back pain, Extremity Pain Skin: Denies: Rash, Wounds Neurological: Denies: Headache, Weakness, Numbness Physical Exam Vital Signs/Narrative: Vital Signs Temp Pulse Resp BP Pulse Ox 10/16/20 22:42 97.7 F L 135 H 16 155/75 H 99 General: Well nourished, Well developed, No Acute Distress Head: Normocephalic, Atraumatic Eyes: Perrl, EOMI ENT: Moist mucous membranes, No rhinorrhea Neck: Supple, Nontender Cardiovascular: No murmurs, Tachycardia Respiratory: No distress, CTA bilaterally, Chest nontender Abdomen: Soft, Nontender, Nondistended, Normal bowel sounds Back: Nontender, Normal Inspection Extremities: Nontender, No edema Skin: Normal color, No rash Neurological: Alert, Oriented x3, Cranial nerves II-XII grossly intact, Normal Strength, Normal Sensation Psychological: Normal affect, Normal Mood Diagnostic/Tx/Re-eval - Medical Decision Making Patient had EKG upon arrival shows sinus tachycardia rate of 132 with no acute ischemia or arrhythmia. Lab work obtained. Given IV fluids. Her shows elevated troponin 0.4. Given her history of coronavirus and elevated troponin this could be related to coronavirus. However I wanted to make sure she did have a pulmonary embolism being the fact that she is with tachycardia and a recent coronavirus. CT angio of the chest was obtained after consent which showed nothing acute. Repeat troponin was 0.9. Patient remained asymptomatic. Heart rate in the 80s. Blood pressures in the 130s over 80s. She did have some mild protein in her urine. Liver function test normal. CBC normal. Low suspicion for eclampsia. Discussed the case with hospitalist and architect intern and her [employer] and the patient will be admitted for further evaluation and treatment. This could be a myocarditis related to her Covid. I have a low suspicion for acute coronary syndrome. We have ruled out pulmonary embolism or dissection. I do not feel she needs heparin at this time. Will be admitted for close monitoring and echocardiogram as an inpatient ED Disposition - Plan for ED Patient: Disposition: Acute Care Hospital [facility] Diagnosis: Tachycardia, Elevated troponin, induced hypertension
[2020-10-17] VITALS (11 sets, daily range): BP systolic 139–167; BP diastolic 81–108; PULSE 81–107; RESP 16–20; TEMP 36.8; O2SAT 98–100; BMI 46.8
[2020-10-17 00:14] LABS: Mucous, Urine 0 SEEN /hpf (<or=2+); Red Blood Cells-Urine 0 SEEN /hpf (0-5)
[2020-10-17 00:16] LABS: Color, Urine Yellow (Yellow); Glucose, Dipstick 50 mg/dl (Normal); Ketone-Dipstick 15 mg/dl (Negative); Leukocyte Esterase-Dipstick 25 /ul (Negative); Nitrite-Dipstick Negative (Negative); Occult Blood-Urine Negative /ul (Negative); Protein-Dipstick 30 mg/dl (Negative); Urine Bilirubin Dipstick Negative (Negative); Urine Clarity Clear (Clear); Urine Urobilinogen Normal (Normal)
[2020-10-17] MEDS: 0.9% Normal Saline 1,000 ML 1000 ML IV (00:21)
[2020-10-17 00:29] LABS: Absolute Neutrophil Count 5.1 X10^3/uL (2.0-7.7); Basophil# 0.01 X10^3/uL; Basophil% 0.1 % (0-1); Eosinophils% 1.3 % (0-5); Hematocrit 40.1 % (37-47); Hemoglobin 13.3 g/dL (12.0-15.0); Lymphocyte % 24.4 % (19-41); Mean Corp Hgb Conc 33.2 g/dL (32-36); Mean Corpuscular Hgb 28.6 pg (27.0-32.0); Mean Corpuscular Volume 86.2 fL (81-99); Mean Platelet Vol. 9.3 fl (6.2-12.0); Monocyte# 0.61 X10^3/uL; Monocyte% 7.8 % (0-10); NRBC Flagged by Analyzer 0 % (0-5); Neutrophil # 5.13 X10^3/uL (2.7-7.7); Neutrophil % 65.9 % (47-70); Platelet Count 388 K/mm3 (150-450); RBC Distribution Width CV 12.6 % (11.6-14.6); Red Blood Count 4.65 M/mm3 (4.2-5.4); White Blood Count 7.8 K/mm3 (4.4-11.0)
[2020-10-17 00:38] LABS: AST(SGOT) 22 U/L (15-37); Alanine Aminotransfer ALT/SGPT 53 U/L (13-56); Albumin, Serum 2.8 g/dL (3.2-5.0); Alkaline Phosphatase 113 U/L (45-117); Anion Gap 8 (5-15); BUN 7 mg/dL (7-18); BUN/Creat Ratio 12.4 RATIO (10-20); Bilirubin, Direct 0.07 mg/dL (0.00-0.30); Calcium,Total 9.1 mg/dL (8.5-10.1); Chloride 109 mmol/L (98-107); Creatinine, Serum 0.56 mg/dL (0.55-1.02); EST Glomerular Filtration Rate 138 mL/min (>60); Est Glom Filt Rate - Afr Amer 168 mL/min (>60); Estimated Creatinine Clearance 143.76 ml/min; Globulin 4.6 g/dL (2.2-4.2); Glucose 105 mg/dL (74-106); Potassium 3.5 mmol/L (3.5-5.1); Protein, Total 7.4 g/dL (6.4-8.2); Sodium Level 141 mmol/L (136-145)
--- NOTE | 2020-10-17 00:42 | CT_ITS ---
STUDY: CTA CHEST REASON FOR EXAM: Female, 25 years old. TACHYCARDIA,PT 29 WEEKS ,CHEST PRESSURE,PT HAD + COVID TEST 10-08-20 -- HX:HTN,GESTATIONAL DIABETES RADIATION DOSAGE (If Supplied By Facility): CTDIvol = ( 16.23 ) mGy, DLP = ( 489.59 ) mGycm TECHNIQUE: The examination was performed with the intravenous administration of IV 100mL Isovue-370. Post-processing of the angiographic images was performed, with multiplanar reformation and 3D reconstruction. Individualized dose optimization techniques were used for this CT. COMPARISON: None. FINDINGS: Normal enhancement of the main pulmonary artery and right and left pulmonary arteries. Normal enhancement of the bilateral peripheral pulmonary arteries. There is no demonstrated pulmonary embolism. Normal thoracic aorta and visualized great vessels. There is no demonstrated aortic dissection. Normal heart and pericardium. Normal mediastinum. Normal hilar regions. Normal visualized trachea and bronchi. The lungs are well expanded. Normal pulmonary parenchyma. Normal pleura. Normal chest wall structures. Normal osseous structures. Normal visualized upper abdomen. CT/CTA Chest W/WO Contrast IMPRESSION: Normal CTA chest examination, without a demonstrated pulmonary embolism or arterial dissection. Electronically Signed: Janee Casiano, at 1:35 EST Tel , Service support ,
[2020-10-17 00:45] LABS: Bacteria 1+ /hpf (None Seen); Squamous Epithelial Cells - UA 0-5 SEEN /hpf (5-10); White Blood Cells 0-5 SEEN /hpf (0-5)
[2020-10-17] MEDS: Aspirin 325 MG Tablet PO (01:20)
[2020-10-17] MEDS: 0.9% Normal Saline 1,000 ML 150 ML IV (01:20)
--- NOTE | 2020-10-17 03:43 | HP.PCM_ITS ---
Problem List (1) Tachycardia Status: Acute (2) Elevated troponin Status: Acute (3) induced hypertension Status: Chronic (4) COVID-19 affecting , antepartum Status: Chronic Comment: growth US and baby ASA (5) Gestational diabetes Status: Chronic Comment: dianosed 1TM. endocrine following. diet controlled. (6) Genital HSV Status: Chronic Comment: plan acyclovir at 36 weeks (7) Obesity affecting Status: Acute Comment: 1 tm glucola abnl. encourage healthy weight gain in . (8) History of pre-eclampsia Status: Chronic Comment: APL testing ordered, plan 81mg asa at 14 weeks. baseline labs. (9) Chronic hypertension affecting Status: Chronic Comment: procardia and labetalol. well controlled. baseline labs ordered, EKG. growth us q 4 weeks after 28 and weekly nst/ramya after 32 and deliver at 38 NL US 08/30 (10) Cervical insufficiency during , antepartum Status: Chronic Comment: MFM consult for cerclage placement. prophylactic cerclage placement 12-13 wks. TVCL 1 wk after cerclage placement; progesterone injections recommended, CL 42.8mm 08/02 US (11) Status: Acute Qualifiers: Weeks of gestation: 29 weeks Qualified Code(s): Z3A.29 - 29 weeks gestation of Comment: NIPT low risk, carrier screening neg for . anatomy normal with FU @2 wks for addtl views (12) Supervision of high-risk Status: Acute Comment: PRR JANES [birth year] girl Ross Hernandes (Lisy Mata) Dilip History of Present Illness Date of Admission: 10/17/20 Chief Complaint: heart racing The patient is a 25 year old 29 weeks who presented to emergency department with heart racing that occurred while watching TV. Symptoms occurred about 1 hour prior to presentation. At the emergency department she was found to have tachycardia. She received IV fluids and a tachycardia improved. Lozada marisa her troponin was positive. CTPA was unremarkable. Emergent department doctor discussed the case with patient's HOSTESS HOST doctor and register clerk Dr. Fuentes. Of note patient had a positive Covid test October 08, 2020. Symptoms started about September 30, 2020. Only symptom she had was loss of taste. Patient is out of quarantine from her Covid. Elevated troponin Etiology is unclear at this time. Per cardiology recommendation given to ED doc will order echocardiogram. We will trend troponin. We will continue home baby aspirin. Patient reports taking a baby aspirin for preeclampsia. Supervision in high risk Patient with -induced hypertension in previous and in current . Patient takes labetalol and nifedipine which will be continued. Aspirin continued HOSTESS HOST consult. DVT prophylaxis SCD ordered. Past Medical History Past Medical History (Chronic Problems): Chronic Problems (Last Reviewed 10/17/20 @ 03:[address] Miki Villegas MD) induced hypertension (Chronic) COVID-19 affecting , antepartum (Chronic) growth US and baby ASA Gestational diabetes (Chronic) dianosed 1TM. endocrine following. diet controlled. Genital HSV (Chronic) plan acyclovir at 36 weeks History of pre-eclampsia (Chronic) APL testing ordered, plan 81mg asa at 14 weeks. baseline labs. Chronic hypertension affecting (Chronic) procardia and labetalol. well controlled. baseline labs ordered, EKG. growth us q 4 weeks after 28 and weekly nst/ramya after 32 and deliver at 38 NL US 08/30 Cervical insufficiency during , antepartum (Chronic) MFM consult for cerclage placement. prophylactic cerclage placement 12-13 wks. TVCL 1 wk after cerclage placement; progesterone injections recommended, CL 42.8mm 08/02 US Medical History: Medical History (Last Reviewed 10/17/20 @ 03:[address] Miki Villegas MD) BMI greater than 40 (Resolved) 1 TM glucola, encourage healthy weight gain Chronic hypertension affecting (Resolved) O10.919 start labetalol 100 BID, home bps, baseline urine PCR, CMP, EKG History of gestational diabetes in prior , currently (Resolved) O09.299, Z86.32 1 hour glucola given at NOB History of pre-eclampsia (Resolved) Z87.59 81 mg at 14 weeks Right upper quadrant abdominal pain (Resolved) R10.11 Allergies No Known Allergies Allergy (Verified 10/16/20 22:45) Home Medications: Ambulatory Orders Medication Instructions Recorded multivitamin no.47-iron fum 27 1 cap PO DAILY 01/16/20 mg-folate no.1 1 mg-dha 300 mg capsule labetalol 200 mg tablet 200 mg PO BID #60 tab 01/19/20 hydroxyprogest(PF)(preg presv) 275 275 mg SC QWEEK 08/02/20 mg/1.1 mL subcut auto-inject blood pressure test kit-large See Rx Instructions .ROUTE 09/20/20 .MEDSUPPLY #1 ea nifedipine 60 mg tablet,extended 60 mg PO DAILY #30 tab 09/25/20 release 24 hr Aspirin [Aspirin, Baby] 81 mg PO DAILY@0800 10/17/20 Vit No.130/Iron/Folic 1 ea PO DAILY 10/17/20 [ Tablet] Surgical History: Surgical History (Last Reviewed 10/17/20 @ 03:[address] Miki Villegas MD) History of tonsillectomy Z90.89 History of cervical cerclage (Resolved) Z98.890 History of cholecystectomy Z90.49 03/11/19 Surgical History: - Lives: With Family Smoking Status: Never smoker Tobacco Use: Non-smoker Alcohol: None Drugs: None - *Family History Maternal Family History: Family History (Last Reviewed 10/17/20 @ 03:[address] Miki Villegas MD) Mother Diabetes Hypertension Aunt Breast cancer Uncle Colon cancer Father Hypertension Review of Systems Constitutional: Denies: Chills, Fever, Weight Change HEENT: Denies: Head Aches, Sinus Congestion, Sinus Drainage Cardiovascular: Reports: Palpitations. Denies: Chest Pain Respiratory: Denies: Cough, Shortness of breath at rest, Sputum production Gastrointestinal: Denies: Abdominal Pain, Nausea, Vomiting Genitourinary: Denies: Dysuria Musculoskeletal: Denies: Joint Pain, Joint Tenderness Skin: Denies: Rash, Wounds Neurological: Denies: Numbness, Tingling, Focal weakness Psychiatric: Denies: Anxiety, Depression, Homicidal Ideations, Suicidal Ideations Hematologic/ Lymphatic: Denies: Easy Bruising, Easy Bleeding VTE Information - Inpt Only VTE Present on Admission: No VTE Mechan Device Prophylaxis: SCD's VTE Pharm Prophylaxis ordered?: No Patient Problems: Active and Suspected Problems (Last Reviewed 10/17/20 @ 03:[address] Miki Villegas MD) Tachycardia (Acute) Elevated troponin (Acute) Obesity affecting (Acute) 1 tm glucola abnl. encourage healthy weight gain in . (Acute) NIPT low risk, carrier screening neg for . anatomy normal with FU @2 wks for addtl views Supervision of high-risk (Acute) PRR JANES 01/[birth year] girl Ross Hernandes (Adolfo Lisy dec) Dilip - Physical Exam Vitals/I&O's: Vital Signs Temp Pulse Resp BP Pulse Ox 97.7 F L 88 20 H 139/81 H 100 10/16/20 22:42 10/17/20 02:31 10/17/20 02:31 10/17/20 02:31 10/17/20 02:31 Oxygen Delivery Method Room Air Weight: 130.181 kg Body Mass Index (BMI) 46.3 Intake and Output for Last 24 Hours 10/15/20 10/16/20 10/17/20 23:59 23:59 23:59 Intake Total 1000 / 1000 Balance 1000 / 1000 General: Alert, Oriented x3, Cooperative HEENT: Atraumatic, PERRLA, EOMI, Normocephalic Neck: Supple, No JVD, Negative Carotid Bruits Lungs: Clear to auscultation, Normal air movement Cardiovascular: Regular rate, Normal S1, Normal S2, No murmurs, Tachycardic Abdomen: Bowel Sounds Present, Soft, Non Tender Extremities: No edema, Capillary Refill Less than 3 Seconds Skin: No rashes, No breakdown Musculoskeletal: No Tenderness to Palpation of Joints or Extremities Neurological: Cranial nerves II-XII grossly intact Psych/Mental Status: Normal Affect, Appropriate Laboratory Results 10/17/20 00:05: WBC 7.8, RBC 4.65, Hgb 13.3, Hct 40.1, MCV 86.2, MCH 28.6, MCHC 33.2, RDW Std Deviation 39.0, RDW Coeff of Yobani 12.6, Plt Count 388, MPV 9.3, Immature Gran % (Auto) 0.500, Neut % (Auto) 65.9, Lymph % (Auto) 24.4, Wilkin % (Auto) 7.8, Eos % (Auto) 1.3, Baso % (Auto) 0.1, Absolute Neuts (auto) 5.1, Absolute Lymphs (auto) 1.90, Nucleated RBC % 0 10/17/20 00:05: Sodium 141, Potassium 3.5, Chloride 109 H, Carbon Dioxide 24.0, Anion Gap 8, BUN 7, Creatinine 0.56, Estim Creat Clear Calc 143.76, Est GFR (MDRD) Af Amer 168, Est GFR (MDRD) Non-Af 138, BUN/Creatinine Ratio 12.4, Glucose 105, Calcium 9.1, Total Bilirubin 0.20, Direct Bilirubin 0.07, AST 22, ALT 53, Alkaline Phosphatase 113, Troponin I 0.415 H, Total Protein 7.4, Albumin 2.8 L, Globulin 4.6 H 10/17/20 00:05: Urine Color Yellow, Urine Clarity Clear, Urine pH 6.0, Ur Specific [place] 1.020, Urine Protein 30 H, Urine Glucose (UA) 50 H, Urine Ketones 15 H, Urine Occult Blood Negative, Urine Nitrite Negative, Urine Bilirubin Negative, Urine Urobilinogen Normal, Ur Leukocyte Esterase 25 H, Urine RBC 0 SEEN, Urine WBC 0-5 SEEN, Ur Squamous Epith Cells 0-5 SEEN, Urine Bacteria 1+, Urine Mucus 0 SEEN 10/17/20 01:55: Troponin I 0.914 H* Current Medications Sodium Chloride () 1,000 mls @ 150 mls/hr IV .Q6H40M ISABELLA Last Admin: 10/17/20 01:20 Dose: 150 mls/hr Documented by: Iopamidol (Contrast Allergy Safety Check) 0 ml IV X1 ISABELLA Assessment/Plan All Active Problems (Last Reviewed 10/17/20 @ 03:[address] Miki Villegas MD) Tachycardia (Acute) Elevated troponin (Acute) Obesity affecting (Acute) (Acute) Supervision of high-risk (Acute) BMI greater than 40 (Resolved) Cervical insufficiency during , antepartum (Resolved) Chronic hypertension affecting (Resolved) Genital herpes (Resolved) History of cervical cerclage (Resolved) History of gestational diabetes in prior , currently (Resolved) History of pre-eclampsia (Resolved) (Resolved) Right upper quadrant abdominal pain (Resolved) Supervision of high risk , antepartum (Resolved) Elevated troponin Etiology is unclear at this time. Per cardiology recommendation given to ED doc will order echocardiogram. We will trend troponin. We will continue home baby aspirin. Patient reports taking a baby aspirin for preeclampsia. Cardiology consult Tachycardia/Palpitation Received normal saline bolus given at emergency department. Because of hyperchloremia we will switch fluids and continue patient on lactated Ringer's. Telemetry monitoring ordered. Supervision in high risk Patient with -induced hypertension in previous and in current . Patient takes labetalol and nifedipine which will be continued. Aspirin continued HOSTESS HOST consult. Preeclampsia/-induced hypertension Blood pressure is elevated. Labetalol and nifedipine continued Trend blood pressures. Recent COVID-19 infection Patient is out of quarantine at this time. DVT prophylaxis SCD ordered. OBSV E&M: 92463 Initial observation care L2
--- NOTE | 2020-10-17 04:03 | ECHOD_ITS ---
Reason For Study: ELEVATED TROPONIN Procedure This was a 2D Doppler, Color Flow transthoracic echocardiogram. The exam was of adequate technical quality. Exam performed portable in patient room. Left Ventricle Normal LV size. Moderate concentric left ventricular hypertrophy. Left ventricular systolic function is normal. The estimated ejection fraction is 70 %. No evidence for diastolic dysfunction. No regional wall motion abnormalities noted. Right Ventricle Normal RV size. Normal systolic function. Atria Normal left atrium. Normal right atrium. No doppler evidence for ASD. Mitral Valve There is no mitral annular calcification. Normal mitral valve. Trivial mitral valve insufficiency. Tricuspid Valve Normal tricuspid valve. Trivial tricuspid valve insufficiency. Right ventricular systolic pressure estimated to be 27 mmHg. Aortic Valve Trisinus/trileaflet aortic valve. Normal aortic valve. Pulmonic Valve The pulmonic valve is not well visualized. Great Vessels Normal sized aortic root. Pericardium/Pleural Trivial pericardial effusion. There are no echocardiographic indications of cardiac tamponade. MMode/2D Measurements & Calculations LVIDd: 4.2 cm IVSd: 1.3 cm LVOT diam: 2.0 cm LVIDs: 2.7 cm LVPWd: 1.5 cm LVOT area: 3.1 cm2 RVDd: 3.4 cm FS: 36.4 % Ao root diam: 2.9 cm LAV(MOD-bp): 52.2 ml LVAd ap4: 40.9 cm2 LAV(MOD-bp) Indexed: 22.3 ml/m2 EDV(MOD-sp4): 138.7 ml LAV(MOD-sp2): 56.1 ml EDV(sp4-el): 143.7 ml LAV(MOD-sp4): 45.7 ml LVAs ap4: 20.8 cm2 ESV(MOD-sp4): 44.1 ml ESV(sp4-el): 42.6 ml EF(MOD-sp4): 68.2 % EF(sp4-el): 70.4 % SV(MOD-sp4): 94.6 ml SV(sp4-el): 101.1 ml LA A4 area: 16.8 cm2 LA dimension(2D): 3.9 cm RA A4 area: 13.6 cm2 Time Measurements MV dec time: 0.22 sec Doppler Measurements & Calculations MV E max markel: 82.0 cm/sec Lat Peak E' Markel: 14.0 cm/sec Med Peak E' Markel: 12.3 cm/sec MV A max markel: 65.0 cm/sec E/E' lat: 5.9 E/E' med: 6.7 MV E/A: 1.3 Ao V2 max: 206.9 cm/sec LV V1 max: 170.8 cm/sec SV(LVOT): 103.6 ml Ao max P.1 mmHg LV V1 max P.7 mmHg Ao V2 mean: 131.1 cm/sec LV V1 mean P.2 mmHg Ao mean P.8 mmHg LV V1 mean: 115.7 cm/sec Ao V2 VTI: 35.5 cm LV V1 VTI: 33.1 cm PEDRO LUIS(I,D): 2.9 cm2 PEDRO LUIS(V,D): 2.6 cm2 PA V2 max: 141.6 cm/sec TR max markel: 242.4 cm/sec TR max P.5 mmHg Interpretation Summary Left ventricular systolic function is normal. The estimated ejection fraction is 70 %. Moderate concentric left ventricular hypertrophy. Trivial mitral valve insufficiency. Trivial tricuspid valve insufficiency. Trivial pericardial effusion. There are no echocardiographic indications of cardiac tamponade. Right ventricular systolic pressure estimated to be 27 mmHg. No evidence for diastolic dysfunction. Ordering Physician: Miki Villegas Referring Physician: LANI VAZ Performed By: Madeline Mata RDCS
--- NOTE | 2020-10-17 04:38 | NURSING ---
This RN and WP set up and charger, Mike Bruno, into pt room for NST per Dr. Metzger telephone order. Pt denies leaking of fluid and vaginal bleeding at this time. Pt endorses good movement and reports occasional [place]vera contractions helped by taking warm baths. Pt on monitor from 0427 to 0455. FHR found LRQ, abdomen palpates soft, denies tenderness. No contractions noted during this time and FHR tracing occasionally broken due to audible movement and maternal habitus. Category I FHR tracing with moderate variability, no decelerations, and accelerations measuring 10bpm by 10sec. FHR baseline is 130 at this time. Paper strip to be saved.
[2020-10-17 04:57] LABS: Protein, Urine (Random) 14.3 mg/dL (<11.9); Protein:Creat Ratio 203 mg/g CRE (0-200)
[2020-10-17] MEDS: Lactated Ringers 1,000 ML 100 ML IV (05:08)
[2020-10-17 07:46] LABS: ALB/GLOB Ratio 0.8 RATIO (0.9-2.4); AST(SGOT) 16 U/L (15-37); Alanine Aminotransfer ALT/SGPT 41 U/L (13-56); Albumin, Serum 2.5 g/dL (3.2-5.0); Alkaline Phosphatase 94 U/L (45-117); Anion Gap 8 (5-15); BUN 5 mg/dL (7-18); BUN/Creat Ratio 12.9 RATIO (10-20); Calcium,Total 8.3 mg/dL (8.5-10.1); Chloride 112 mmol/L (98-107); Creatinine, Serum 0.39 mg/dL (0.55-1.02); EST Glomerular Filtration Rate 213 mL/min (>60); Est Glom Filt Rate - Afr Amer 258 mL/min (>60); Estimated Creatinine Clearance 206.43 ml/min; Globulin 3.2 g/dL (2.2-4.2); Glucose 85 mg/dL (74-106); Potassium 3.8 mmol/L (3.5-5.1); Protein, Total 5.7 g/dL (6.4-8.2); Sodium Level 143 mmol/L (136-145)
[2020-10-17] MEDS: Labetalol 200 MG Tablet PO (09:15)
[2020-10-17] MEDS: Prenatal Vits Tablet 1 TABLET PO (09:15)
[2020-10-17] MEDS: NIFEdipine 60 MG Tablet PO (09:15)
--- NOTE | 2020-10-17 09:20 | NURSING ---
0900-[facility] 145.
--- NOTE | 2020-10-17 09:51 | CASEMGMT ---
ABEL CM NOTE: Insurance review for hospitals In-network with [facility] Insurance if transfer is recommended is as follows: [facility], [place], [facility], [facility], [facility], [facility], [facility], [place] [facility]), and . Amanda NIEVES RN CM
[2020-10-17 10:07] LABS: Absolute Lymphocyte Count 2.18 X10^3/uL (0.83-4.51); Absolute Neutrophil Count 4.2 X10^3/uL (2.0-7.7); Basophil# 0.01 X10^3/uL; Basophil% 0.1 % (0-1); Eosinophil# 0.11 X10^3/uL; Eosinophils% 1.5 % (0-5); Hematocrit 33.5 % (37-47); Hemoglobin 11.1 g/dL (12.0-15.0); Lymphocyte # 2.18 X10^3/ul (4.0); Lymphocyte % 30.6 % (19-41); Mean Corp Hgb Conc 33.1 g/dL (32-36); Mean Corpuscular Hgb 28.8 pg (27.0-32.0); Mean Corpuscular Volume 86.8 fL (81-99); Mean Platelet Vol. 9.7 fl (6.2-12.0); Monocyte# 0.58 X10^3/uL; Monocyte% 8.1 % (0-10); NRBC Flagged by Analyzer 0 % (0-5); Neutrophil # 4.23 X10^3/uL (2.7-7.7); Neutrophil % 59.6 % (47-70); Platelet Count 342 K/mm3 (150-450); RBC Distribution Width CV 12.5 % (11.6-14.6); RBC Distribution Width SD 39.4 fl (35.1-43.9); Red Blood Count 3.86 M/mm3 (4.2-5.4); White Blood Count 7.1 K/mm3 (4.4-11.0)
--- NOTE | 2020-10-17 10:38 | CON.PCM_ITS ---
Problem List (1) Tachycardia Status: Acute (2) Elevated troponin Status: Acute (3) Murmur, cardiac Status: Acute (4) induced hypertension Status: Chronic (5) Gestational diabetes Status: Chronic Comment: dianosed 1TM. endocrine following. diet controlled. (6) COVID-19 affecting , antepartum Status: Chronic Comment: growth US and baby ASA Reason for Consult Date of Consultation: 10/17/20 History of Present Illness: The patient is a 25 year [id number] female with a past history of - induced hypertension and gestational diabetes who is currently approximately 29 weeks during her fourth who presented to the [facility] emergency department based on concerns of palpitations/rapid heart rate sensations and chest discomfort who was subsequently found to have evidence of sinus tachycardia and an indeterminant/subsequent positive troponin I levels with no additional acute ECG changes who was placed in the PCU for further evaluation and care. She states to the best of her knowledge she has no definitive cardiovascular history and does not recall undergoing cardiovascular evaluation in the past other than the ECGs. She states she awoke with a sensation of a palpitation and rapid heart rate sensation. She believes her heart rate was going in excess of 150 bpm. She states she felt as if a elephant was sitting on my chest . She does not recall any acute shortness of breath/dyspnea, nausea, emesis, or diaphoresis. There was no report of near syncope or syncope. She did state that the discomfort in her chest radiated toward her left shoulder. She presented to the emergency department for further evaluation. There she was found to have evidence of sinus tachycardia and on subsequent evaluation indeterminate and then subsequent abnormal troponin I levels. Her ECG demonstrated no acute ECG changes. She underwent evaluation for thromboembolic disease such as pulmonary emboli with a chest CT scan which was reported as negative for great vessel disease or thromboembolic disease. Her presentation is in the setting of being recently COVID-19 positive and recently out of quarantine. She was treated in the emergency department with aspirin therapy and placed on the PCU for further evaluation. Today she states she feels better. She is not having any ongoing symptoms. Her heart rate has improved. Her blood pressure was elevated at the time of admission and remains elevated. Her troponin I levels have begun to trend down. [] Past Medical History Allergies/Adverse Reactions: Allergies No Known Allergies Allergy (Verified 10/16/20 22:45) Home Medications: Ambulatory Orders Medication Instructions Recorded multivitamin no.47-iron fum 27 1 cap PO DAILY 01/16/20 mg-folate no.1 1 mg-dha 300 mg capsule labetalol 200 mg tablet 200 mg PO BID #60 tab 01/19/20 hydroxyprogest(PF)(preg presv) 275 275 mg SC QWEEK 08/02/20 mg/1.1 mL subcut auto-inject blood pressure test kit-large See Rx Instructions .ROUTE 09/20/20 .MEDSUPPLY #1 ea nifedipine 60 mg tablet,extended 60 mg PO DAILY #30 tab 09/25/20 release 24 hr Aspirin [Aspirin, Baby] 81 mg PO DAILY@0800 10/17/20 Vit No.130/Iron/Folic 1 ea PO DAILY 10/17/20 [ Tablet] Past Medical History (Chronic Problems): Chronic Problems (Last Reviewed 10/17/20 @ 03:[address] Miki Villegas MD) induced hypertension (Chronic) COVID-19 affecting , antepartum (Chronic) growth US and baby ASA Gestational diabetes (Chronic) dianosed 1TM. endocrine following. diet controlled. Genital HSV (Chronic) plan acyclovir at 36 weeks History of pre-eclampsia (Chronic) APL testing ordered, plan 81mg asa at 14 weeks. baseline labs. Chronic hypertension affecting (Chronic) procardia and labetalol. well controlled. baseline labs ordered, EKG. growth us q 4 weeks after 28 and weekly nst/ramya after 32 and deliver at 38 NL US 08/30 Cervical insufficiency during , antepartum (Chronic) MFM consult for cerclage placement. prophylactic cerclage placement 12-13 wks. TVCL 1 wk after cerclage placement; progesterone injections recommended, CL 42.8mm 08/02 US Surgical History: - - *Family History Maternal Family History: Family History (Last Reviewed 10/17/20 @ 03:[address] Miki Villegas MD) Mother Diabetes Hypertension Aunt Breast cancer Uncle Colon cancer Father Hypertension Lives: With Family Smoking Status: Never smoker Tobacco Use: Non-smoker Alcohol: None Drugs: None Review of Systems - Review of Systems General: Denies: Fever, Night Sweats, Fatigue Cardiovascular: Reports: Chest Discomfort, Chest Discomfort at Rest, Palpitations. Denies: Shortness of Breath, Orthopnea, PND, Peripheral Edema, Lightheadedness, Dizziness, Near Syncope, Syncope Respiratory: Denies: Cough, Sputum Production, Hemoptysis Gastrointestinal: Denies: Hematemesis, Hematochezia, Melena Genitourinary: Denies: Dysuria, Hematuria Skin: Denies: Rash Subjectve: This is a 25-year-old female who appears to be resting comfortably at the moment in no acute distress. Objective: Vital Signs Temp Pulse Resp BP Pulse Ox 98.3 F 89 16 164/89 H 99 10/17/20 09:10 10/17/20 09:10 10/17/20 09:10 10/17/20 09:10 10/17/20 09:10 Oxygen Delivery Method Room Air Weight: 290 lb 2.053 oz Body Mass Index (BMI) 46.8 Intake and Output for Last 24 Hours 10/15/20 10/16/20 10/17/20 23:59 23:59 23:59 Intake Total 2232.5 / 2232.5 Output Total 350 / 350 Balance 1882.5 / 1882.5 General: Awake, Alert, Oriented x 3, Cooperative, No Acute Distress, Obese HEENT: Atraumatic, Normocephalic, PERRL, EOMI, Sclera Non Icteric Neck: Supple, Good ROM, No JVD Lungs: Clear to auscultation Cardiovascular: Regular Rhythm, Normal S1, Normal S2 Murmur Murmur: Grade 2/6, Soft, Mid Systolic, LLSB, LVOT, Sternal Notch Vascular: No Carotid Bruits Abdomen: Bowel Sounds Present, Soft Extremities: No edema Neurological: No Focal Motor or Sensory Deficit Psych/Mental Status: Appropriate 10/17/20 00:05: WBC 7.8, RBC 4.65, Hgb 13.3, Hct 40.1, MCV 86.2, MCH 28.6, MCHC 33.2, Plt Count 388, MPV 9.3, Immature Gran % (Auto) 0.500, Neut % (Auto) 65.9, Lymph % (Auto) 24.4, [place] % (Auto) 7.8, Eos % (Auto) 1.3, Baso % (Auto) 0.1, Absolute Neuts (auto) 5.1, Nucleated RBC % 0 10/17/20 00:05: Sodium 141, Potassium 3.5, Chloride 109 H, Carbon Dioxide 24.0, Anion Gap 8, BUN 7, Creatinine 0.56, Est GFR (MDRD) Af Amer 168, Est GFR (MDRD) Non-Af 138, BUN/Creatinine Ratio 12.4, Glucose 105, Calcium 9.1, Total Bilirubin 0.20, Direct Bilirubin 0.07, Troponin I 0.415 H 10/17/20 00:05: Urine Color Yellow, Urine Clarity Clear, Urine pH 6.0, Ur Specific [place] 1.020, Urine Protein 30 H, Urine Glucose (UA) 50 H, Urine Ketones 15 H, Urine Occult Blood Negative, Urine Nitrite Negative, Urine Bilirubin Negative, Urine Urobilinogen Normal, Ur Leukocyte Esterase 25 H, Urine RBC 0 SEEN, Urine WBC 0-5 SEEN 10/17/20 01:55: Troponin I 0.914 H* 10/17/20 06:34: Sodium 143, Potassium 3.8, Chloride 112 H, Carbon Dioxide 23.0, Anion Gap 8, BUN 5 L, Creatinine 0.39 L, Est GFR (MDRD) Af Amer 258, Est GFR (MDRD) Non-Af 213, BUN/Creatinine Ratio 12.9, Glucose 85, Calcium 8.3 L, Total Bilirubin 0.20, Troponin I 0.736 H* 10/17/20 06:34: WBC 7.1, RBC 3.86 L, Hgb 11.1 L, Hct 33.5 L, MCV 86.8, MCH 28.8, MCHC 33.1, Plt Count 342, MPV 9.7, Immature Gran % (Auto) 0.100, Neut % (Auto) 59.6, Lymph % (Auto) 30.6, [place] % (Auto) 8.1, Eos % (Auto) 1.5, Baso % (Auto) 0.1, Absolute Neuts (auto) 4.2, Nucleated RBC % 0 10/17/20 09:22: Troponin I 0.647 H* Rhythm: Sinus rhythm EKG: As noted above ECHO: Pending Chest CT Scan: As noted above Assessment/Plan 1. Tachycardia The patient presented with symptoms of palpitations and rapid heart rate. It is unclear what her cardiac rhythm was prior to presenting to the hospital as to whether or not she had developed some form of tacky dysrhythmia. At the time of presentation it appears her cardiac rhythm was sinus tachycardia. According to the emergency permit staff she was monitored. She had subsequent spontaneous slowing of her cardiac rate. She did not require rate limiting therapy. 2. Elevated troponin I levels She does have elevated troponin I levels. The etiology is unclear at this time. She has not been found to have evidence of great vessel disease/thromboembolic disease, acute RADIO DIVISION CAPTAIN events, acute renal insufficiency, or evidence of sepsis. It is unclear as to whether her troponin I levels are related to her recent COVID-19 positivity. It is unclear whether or not her tachycardia contributed to her abnormal troponin I levels creating a type II non-ST segment elevation type of event. There is also concern as to whether or not her troponin I levels represent u nderlying premature coronary artery disease, congenital coronary artery disease, or events such as spontaneous coronary artery dissection. Is also unclear as to whether or not she may have an underlying peripartum related cardiomyopathy. It is unclear as to whether or not her -induced hypertension also contributed to her symptoms and objective findings including her troponin I levels. At the moment her troponin I levels have decreased. Her initial ECG demonstrated no acute ECG changes. She is without ongoing symptoms. She is pending further evaluation of her left ventricular wall motion and overall systolic function with a transthoracic echocardiogram to evaluate for any obvious either regional wall motion abnormalities or global wall motion abnormalities. He has been treated with aspirin therapy. Thus far she has not been treated with additional therapy such as antiplatelet/anticoagulants, nitrates, beta- blockers, etc. Depending upon her clinical course she may need these therapies. Depending upon her clinical course and objective findings including her echocardiogram consideration will have to be given as to how to explain her symptoms and her troponin I levels. If there is a question as to whether or not she has any form of underlying coronary artery related involvement based upon her symptoms and findings and has to be given consideration to further eval uation from that standpoint such as coronary angiography with diagnostic cardiac catheterization then it would be reasonable based upon her young age, her , her -induced hypertension, etc. that she be considered for such an evaluation at a tertiary care center with cardiovascular services and high risk maternal- medicine services. 3. Cardiac murmur She does have a cardiac murmur. This will be further assessed with a transthoracic echocardiogram for any obvious valvular related abnormalities versus a potential murmur occurring during her based upon hemodynamic changes. 4. -induced hypertension She should continue evaluation care per her MYCOLOGY TEACHER team with respect to appropriate medical management. Depending upon her overall course she may need to be considered for additional medical therapy from a cardiovascular standpoint as well as her hypertension standpoint with agents such as beta-blockers. 5. Gestational diabetes She will continue evaluation care by her MYCOLOGY TEACHER team. 6. Obesity Unfortunately she is overweight/obese. This does increase her overall risks. 7. COVID-19 positive The patient had previously been diagnosed with COVID-19. Did not require hospitalization. She states she has now completed quarantine and has been released. Comment: The patient's case was discussed and reviewed with the patient, previously with the [facility] emergency department staff, and previously with the [facility] staff - Dr. Srinivasan who has been in indication with the patient's primary MYCOLOGY TEACHER physician-Dr. Kaitlynn Metzger. This note was generated using a voice recognition system and there may be incorrect words, spelling or punctuation that were not noted when reviewing the office note prior to saving.
--- NOTE | 2020-10-17 11:11 | PCM.CONS.GEN ---
Problem List (1) Tachycardia Status: Acute Comment: admitted to hospital 10/17 (2) Elevated troponin Status: Acute (3) Murmur, cardiac Status: Acute (4) COVID-19 affecting , antepartum Status: Chronic Comment: growth US and baby ASA (5) Gestational diabetes Status: Chronic Comment: dianosed 1TM. endocrine following. diet controlled. (6) Genital HSV Status: Chronic Comment: plan acyclovir at 36 weeks (7) Obesity affecting Status: Acute Comment: 1 tm glucola abnl. encourage healthy weight gain in . (8) History of pre-eclampsia Status: Chronic Comment: APL testing ordered, plan 81mg asa at 14 weeks. baseline labs. (9) Chronic hypertension affecting Status: Chronic Comment: procardia and labetalol. well controlled. baseline labs ordered, EKG. growth us q 4 weeks after 28 and weekly nst/ramya after 32 and deliver at 38 NL US 08/30 (10) Cervical insufficiency during , antepartum Status: Chronic Comment: MFM consult for cerclage placement. prophylactic cerclage placement 12-13 wks. TVCL 1 wk after cerclage placement; progesterone injections recommended, CL 42.8mm 08/02 US (11) Status: Acute Qualifiers: Weeks of gestation: 29 weeks Qualified Code(s): Z3A.29 - 29 weeks gestation of Comment: NIPT low risk, carrier screening neg for . anatomy normal with FU @2 wks for addtl views (12) Supervision of high-risk Status: Acute Comment: PRR JANES [birth year] girl [place] (Lisy Mata) Dilip Reason for Consult Date of Consultation: 10/17/20 History of Present Illness: The patient is a 25 year old F @29 weeks presents with tachycardia with palpitation symptoms. Patient has a history of chronic hypertension and diet-controlled gestational diabetes diagnosed in the first trimester, as well as a history of cervical insufficiency status post cerclage placement in the end of the first trimester. Patient recently was diagnosed with Covid 2 weeks ago and has recovered with no chest pain or shortness of breath persistent and is currently regaining loss of taste and smell. Last night she developed palpitation symptoms at home and presented to the ER for evaluation. Initial heart rate was 130 and EKG showed sinus tachycardia. Past Medical History Past Medical History (Chronic Problems): Chronic Problems (Last Reviewed 10/17/20 @ 03:[address] Miki Villegas MD) induced hypertension (Chronic) COVID-19 affecting , antepartum (Chronic) growth US and baby ASA Gestational diabetes (Chronic) dianosed 1TM. endocrine following. diet controlled. Genital HSV (Chronic) plan acyclovir at 36 weeks History of pre-eclampsia (Chronic) APL testing ordered, plan 81mg asa at 14 weeks. baseline labs. Chronic hypertension affecting (Chronic) procardia and labetalol. well controlled. baseline labs ordered, EKG. growth us q 4 weeks after 28 and weekly nst/ramya after 32 and deliver at 38 NL US 08/30 Cervical insufficiency during , antepartum (Chronic) MFM consult for cerclage placement. prophylactic cerclage placement 12-13 wks. TVCL 1 wk after cerclage placement; progesterone injections recommended, CL 42.8mm 08/02 US Medical History: Medical History (Last Reviewed 10/17/20 @ 03:[address] Miki Villegas MD) BMI greater than 40 (Resolved) 1 TM glucola, encourage healthy weight gain Chronic hypertension affecting (Resolved) O10.919 start labetalol 100 BID, home bps, baseline urine PCR, CMP, EKG History of gestational diabetes in prior , currently (Resolved) O09.299, Z86.32 1 hour glucola given at NOB History of pre-eclampsia (Resolved) Z87.59 81 mg at 14 weeks Right upper quadrant abdominal pain (Resolved) R10.11 Allergies No Known Allergies Allergy (Verified 10/16/20 22:45) Home Medications: Ambulatory Orders Medication Instructions Recorded multivitamin no.47-iron fum 27 1 cap PO DAILY 01/16/20 mg-folate no.1 1 mg-dha 300 mg capsule labetalol 200 mg tablet 200 mg PO BID #60 tab 01/19/20 hydroxyprogest(PF)(preg presv) 275 275 mg SC QWEEK 08/02/20 mg/1.1 mL subcut auto-inject blood pressure test kit-large See Rx Instructions .ROUTE 09/20/20 .MEDSUPPLY #1 ea nifedipine 60 mg tablet,extended 60 mg PO DAILY #30 tab 09/25/20 release 24 hr Aspirin [Aspirin, Baby] 81 mg PO DAILY@0800 10/17/20 Vit No.130/Iron/Folic 1 ea PO DAILY 10/17/20 [ Tablet] Surgical History: Surgical History (Last Reviewed 10/17/20 @ 03:[address] Miki Villegas MD) History of tonsillectomy Z90.89 History of cervical cerclage (Resolved) Z98.890 History of cholecystectomy Z90.49 03/11/19 Surgical History: - Lives: With Family Smoking Status: Never smoker Tobacco Use: Non-smoker Alcohol: None Drugs: None - *Family History Maternal Family History: Family History (Last Reviewed 10/17/20 @ 03:[address] Miki Villegas MD) Mother Diabetes Hypertension Aunt Breast cancer Uncle Colon cancer Father Hypertension Review of Systems Constitutional: Denies: Fever, Malaise Eyes: Denies: Blurred vision, Vision Change HEENT: Denies: Head Aches, Visual Changes Cardiovascular: Reports: Palpitations. Denies: Chest Pain Respiratory: Denies: Cough, Shortness of Breath, Wheezing Gastrointestinal: Denies: Abdominal Pain, Diarrhea, Nausea, Vomiting Genitourinary: Denies: Dysuria, Hematuria Musculoskeletal: Denies: Joint Pain, Muscle pain Skin: Denies: Lesions, Rash Neurological: Denies: Blurred vision, Focal weakness, Headaches Psychiatric: Denies: Anxiety, Depression Endocrine: Denies: Heat/ Cold Intolerance Hematologic/ Lymphatic: Denies: Easy Bruising, Easy Bleeding Patient Problems: Active and Suspected Problems (Last Reviewed 10/17/20 @ 03:[address] Miki Villegas MD) Tachycardia (Acute) admitted to hospital 10/17 Elevated troponin (Acute) Murmur, cardiac (Acute) Obesity affecting (Acute) 1 tm glucola abnl. encourage healthy weight gain in . (Acute) NIPT low risk, carrier screening neg for . anatomy normal with FU @2 wks for addtl views Supervision of high-risk (Acute) PRR JANES 01/[birth year]/21 girl [place] (Lisy Mata) Dilip - Physical Exam Vitals/I&O's: Vital Signs Temp Pulse Resp BP Pulse Ox 98.3 F 89 16 164/89 H 99 10/17/20 09:10 12/09/20 09:10 10/17/20 09:10 10/17/20 09:10 10/17/20 09:10 Oxygen Delivery Method Room Air Weight: 290 lb 2.053 oz Body Mass Index (BMI) 46.8 Intake and Output for Last 24 Hours 10/15/20 10/16/20 10/17/20 23:59 23:59 23:59 Intake Total 2232.5 / 2232.5 Output Total 350 / 350 Balance 1882.5 / 1882.5 General: Alert, Oriented x3, Cooperative HEENT: Atraumatic, PERRLA, EOMI, Normocephalic Neck: Supple, No JVD, Negative Carotid Bruits Lungs: Clear to auscultation, Normal air movement Cardiovascular: Tachycardic - 103 Abdomen: Bowel Sounds Present, Soft, Non Tender, Gravid Extremities: No edema, Capillary Refill Less than 3 Seconds Skin: No rashes, No breakdown Musculoskeletal: No Tenderness to Palpation of Joints or Extremities Neurological: Cranial nerves II-XII grossly intact Psych/Mental Status: Normal Affect, Appropriate Laboratory Results 10/17/20 00:05: WBC 7.8, RBC 4.65, Hgb 13.3, Hct 40.1, MCV 86.2, MCH 28.6, MCHC 33.2, RDW Std Deviation 39.0, RDW Coeff of [place]ob[place] 12.6, Plt Count 388, MPV 9.3, Immature Gran % (Auto) 0.500, Neut % (Auto) 65.9, Lymph % (Auto) 24.4, [place] % (Auto) 7.8, Eos % (Auto) 1.3, Baso % (Auto) 0.1, Absolute Neuts (auto) 5.1, Absolute Lymphs (auto) 1.90, Nucleated RBC % 0 10/17/20 00:05: Sodium 141, Potassium 3.5, Chloride 109 H, Carbon Dioxide 24.0, Anion Gap 8, BUN 7, Creatinine 0.56, Estim Creat Clear Calc 143.76, Est GFR (MDRD) Af Amer 168, Est GFR (MDRD) Non-Af 138, BUN/Creatinine Ratio 12.4, Glucose 105, Calcium 9.1, Total Bilirubin 0.20, Direct Bilirubin 0.07, AST 22, ALT 53, Alkaline Phosphatase 113, Troponin I 0.415 H, Total Protein 7.4, Albumin 2.8 L, Globulin 4.6 H 10/17/20 00:05: Urine Color Yellow, Urine Clarity Clear, Urine pH 6.0, Ur Specific [place] 1.020, Urine Protein 30 H, Urine Glucose (UA) 50 H, Urine Ketones 15 H, Urine Occult Blood Negative, Urine Nitrite Negative, Urine Bilirubin Negative, Urine Urobilinogen Normal, Ur Leukocyte Esterase 25 H, Urine RBC 0 SEEN, Urine WBC 0-5 SEEN, Ur Squamous Epith Cells 0-5 SEEN, Urine Bacteria 1+, Urine Mucus 0 SEEN 10/17/20 01:55: Troponin I 0.914 H* 10/17/20 04:34: U Random Total Protein 14.3 H, Urine Creatinine 70.30, Protein/Creatinin Ratio 203 H 10/17/20 06:34: Sodium 143, Potassium 3.8, Chloride 112 H, Carbon Dioxide 23.0, Anion Gap 8, BUN 5 L, Creatinine 0.39 L, Estim Creat Clear Calc 206.43, Est GFR (MDRD) Af Amer 258, Est GFR (MDRD) Non-Af 213, BUN/Creatinine Ratio 12.9, Glucose 85, Calcium 8.3 L, Total Bilirubin 0.20, AST 16, ALT 41, Alkaline Phosphatase 94, Troponin I 0.736 H*, Total Protein 5.7 L, Albumin 2.5 L, Globulin 3.2, Albumin/Globulin Ratio 0.8 L 10/17/20 06:34: WBC 7.1, RBC 3.86 L, Hgb 11.1 L, Hct 33.5 L, MCV 86.8, MCH 28.8, MCHC 33.1, RDW Std Deviation 39.4, RDW Coeff of [place] 12.5, Plt Count 342, MPV 9.7, Immature Gran % (Auto) 0.100, Neut % (Auto) 59.6, Lymph % (Auto) 30.6, [place] % (Auto) 8.1, Eos % (Auto) 1.5, Baso % (Auto) 0.1, Absolute Neuts (auto) 4.2, Absolute Lymphs (auto) 2.18, Nucleated RBC % 0 10/17/20 09:22: Troponin I 0.647 H* Current Medications Acetaminophen (Acetaminophen 325 Mg Tablet) 650 mg PO Q6H PRN PRN PRN Reason: Pain Score 1-10/Temp > 100.7 F Lactated Ringer's () 1,000 mls @ 100 mls/hr IV .Q10H [facility] Last Admin: 10/17/20 05:08 Dose: 100 mls/hr Documented by: Labetalol HCl (Labetalol 100 Mg Tablet) 300 mg PO TID ISABELLA Melatonin (Melatonin 3 Mg Tablet) 3 mg PO QHS PRN PRN PRN Reason: INSOMNIA Nifedipine (Nifedipine 60 Mg Tablet) 60 mg PO DAILY [facility] Last Admin: 10/17/20 09:15 Dose: 60 mg Documented by: Non-Formulary Medication (Hydroxyprogesterone Caproat/Pf) 275 mg SC QWEEK [facility] Ondansetron HCl (Ondansetron 4 Mg/2 Ml Vial) 4 mg IV Q8H PRN PRN PRN Reason: NAUSEA/VOMITING Multivit/Folic Acid/Iron ( Vits Tablet) 1 tablet PO DAILY [facility] Last Admin: 10/17/20 09:15 Dose: 1 tablet Documented by: Senna/Docusate Sodium (Senna/Docusate Sodium 1 Tablet) 2 tablet PO BID PRN PRN PRN Reason: Constipation Sodium Chloride (0.9% Saline Lock 10 Ml Syringe) 10 - 40 ml IV UD PRN PRN Reason: SALINE FLUSH Assessment/Plan All Active Problems (Last Reviewed 10/17/20 @ 03:[address] Miki Villegas MD) Tachycardia (Acute) Elevated troponin (Acute) Murmur, cardiac (Acute) Obesity affecting (Acute) (Acute) Supervision of high-risk (Acute) BMI greater than 40 (Resolved) Cervical insufficiency during , antepartum (Resolved) Chronic hypertension affecting (Resolved) Genital herpes (Resolved) History of cervical cerclage (Resolved) History of gestational diabetes in prior , currently (Resolved) History of pre-eclampsia (Resolved) (Resolved) Right upper quadrant abdominal pain (Resolved) Supervision of high risk , antepartum (Resolved) 25 yo @ 29w1d presents with tachycardia and elevated troponins 1. cHTN on procardia 60 XL daily and labetalol 200 BID, increase dose to 300mg TID. nl urine protein and nl cbc/cmp, no superimposed preeclampsia. 2. elevated troponins- appreciate medicine and cardiology involvement, discussed case with Dr Daniel OWEN, echo done with mild LVH and nl EF 70%, unclear etiology of troponin elevation but they are trending down now. after consultation will plan transport to [facility] for possible stress test and/or cardiac cath 3. GDMA1 4. prematurity- steroids not given due to low risk for delivery at present. 5. cervical insufficiency- cerclage in place Multi Select Codes - Visit Charges Office Visit/Consults: [id number] OV L4 Est
[2020-10-17] MEDS: Labetalol 100 MG Tablet PO (11:29)
[2020-10-17 11:45] LABS: Bedside Glucose 146 mg/dL (70-110)
[2020-10-17 12:06] LABS: T4 Free Direct 0.92 ng/dL (0.76-1.46); Thyroid Stim Hormone (TSH) 1.28 uIU/mL (0.358-3.74)
[2020-10-17] MEDS: Labetalol 100 MG Tablet 300 MG PO (13:47)
--- NOTE | 2020-10-17 15:00 | PCM.HOSP.N ---
Hospitalist Note Patient had palpitations overnight that lasted about an hour. Patient felt tightness in her chest. Patient states that she has had that intermittently before but resolve spontaneously and never lasted this long. Stated the prior episodes occurred when she was more anxious. Patient said that she was just watching TV at the time and was not feeling anxious at all. Patient presented here where she had elevated troponin of 0.9. Physical exam: Patient is no acute distress and afebrile. Heart is regular in rhythm plus S1-S2 with a murmurs gallops or rubs. Lungs are clear to auscultation bilaterally. Assessment and plan: Elevated troponins: Suspect related with a tachyarrhythmia. Cardiology on consultation. Discussed with Drs. Metzger and Gina. Given complexity, patient to be transferred to high-risk OB. Procedures: Other Procedure - See Report - non billable rounding as patient admitted after midnight.
[2020-10-17 16:36] LABS: Amphetamine Urine VISTA NEGATIVE (<1000 ng/mL); Barbiturate Urine VISTA NEGATIVE (< 200 ng/mL); Benzodiazepine Urine VISTA NEGATIVE (< 200 ng/mL); Cocaine Urine VISTA NEGATIVE (< 300 ng/mL); Ecstacy Urine VISTA POSITIVE (< 500 ng/mL); Methadone Urine VISTA NEGATIVE (< 300 ng/mL); PCP Urine VISTA NEGATIVE (< 25 ng/mL); THC Urine VISTA NEGATIVE (< 50 ng/mL); Vista UDS pH Range 6
== END 2020-10-17 16:06 | disposition short-term general hospital (02) ==
LOC: ED 10-17 03:29 → PCU 10-17 03:38
PROVIDERS: Admitting Provider Hospitalist; Emergency Provider Emergency Medicine; PCP Internal Medicine; Visit Provider Obstetrics & Gynecology
DX: O99.413 Diseases of the circulatory system complicating pregnancy, third trimester (principal); Z3A.29 29 weeks gestation of pregnancy; R00.2 Palpitations; O24.410 Gestational diabetes mellitus in pregnancy, diet controlled; O16.3 Unspecified maternal hypertension, third trimester; Z86.19 Personal history of other infectious and parasitic diseases; O98.513 Other viral diseases complicating pregnancy, third trimester; B00.9 Herpesviral infection, unspecified; O99.213 Obesity complicating pregnancy, third trimester; E66.9 Obesity, unspecified; R00.0 Tachycardia, unspecified; R79.89 Other specified abnormal findings of blood chemistry; R01.1 Cardiac murmur, unspecified
CPT/HCPCS: 36415; 71275; 80048; 80053; 80076; 80307; 81001; 82570; 82962; 84156; 84439; 84443; 84484; 85025; 93005; 93306; 96360; 96361; 99218; 99285; J7120; Q9967; A4216; G0378

== ENCOUNTER → 2020-11-06 08:59 | Outpatient (CLI) | payer MEDICAID, SELFPAY ==
[2020-09-14 09:59] VITALS: BMI 47.0
[2020-10-25 16:24] VITALS: BMI 47.1
--- NOTE | 2020-11-06 09:01 | US_ITS ---
STUDY: SECOND AND THIRD TRIMESTER OBSTETRICAL ULTRASOUND - LIMITED REASON FOR EXAM: Female, 25 years old GROWTH -- HX OF COVID IN NOV -- GESTATIONAL DIABETES LMP: 03/27/2020 PRIOR ULTRASOUND: None. TECHNIQUE: Transabdominal TECHNICAL QUALITY: Adequate. FINDINGS: There is a single intrauterine fetus. The fetus is in a breech presentation. There is demonstrated cardiac activity with a heart rate of 147 bpm. There is a normal amniotic fluid volume. The largest amniotic fluid pocket measures 4.7 cm. The amniotic fluid index (SAMRA) is 9.0 cm. The placenta is anterior in location and is not low lying. There are Grade 1 placental changes. The cervix measures cm in length. BIOMETRY: BPD: 8.0 cm: 32 weeks, 2 days HC: 30.7 cm: 34 weeks, 1 days AC: 29.3 cm: 33 weeks, 2 days FL: 6.3 cm: 32 weeks, 5 days Age by LMP: 32 weeks, 0 days. JANES by LMP: 01/01/2021. age by current US: 33 weeks, 2 days. JANES by current US: 12/23/2020. Estimated weight: 2138 grams, +/- 316 grams, 72 percentile. Gender: US/OB Limited With Biometrics IMPRESSION: Living intrauterine of 33 weeks 2 days as described above. Electronically Signed: Felix Celis MD at 8:10 EST Tel , Service support ,
== END ==
PROVIDERS: PCP Internal Medicine; Referring Provider Obstetrics & Gynecology; Visit Provider Obstetrics & Gynecology
DX: O09.93 Supervision of high risk pregnancy, unspecified, third trimester (principal); Z3A.33 33 weeks gestation of pregnancy
CPT/HCPCS: 76816

== ENCOUNTER 2020-11-09 12:15 | Outpatient (CLI) | payer MEDICAID, SELFPAY ==
[2020-11-07 15:01] VITALS: BMI 47.6
[2020-11-09 12:37] VITALS: BMI 47.7
[2020-11-09 12:44] VITALS: BP 135/70; PULSE 93; TEMP 37.3; O2SAT 98
--- NOTE | 2020-11-09 13:26 | US_ITS ---
STUDY: SECOND AND THIRD TRIMESTER OBSTETRICAL ULTRASOUND - LIMITED REASON FOR EXAM: Female, 25 years old cervical length LMP: 03/27/2020 PRIOR ULTRASOUND: 11/06/2020 TECHNIQUE: Transabdominal TECHNICAL QUALITY: Adequate. FINDINGS: There is a single intrauterine fetus. The fetus is in a breech presentation. There is demonstrated cardiac activity with a heart rate of 141 bpm. There is a normal amniotic fluid volume. The largest amniotic fluid pocket measures 3.36 cm. The amniotic fluid index (SAMRA) is 9.17 cm. The placenta is anterior There are Grade 0 placental changes. The cervix measures 3.51 cm in length. Age by LMP: 32 weeks, 3 days. JANES by LMP: 01/01/2021. US/OB Limited (No Biometrics) IMPRESSION: Cervical length of 3.51 cm. Normal SAMRA. Electronically Signed: Sheri Tai MD at 17:21 EST Tel , Service support ,
[2020-11-09 13:39] LABS: Red Blood Cells-Urine 0 SEEN /hpf (0-5)
[2020-11-09 13:42] LABS: Color, Urine Yellow (Yellow); Glucose, Dipstick Normal (Normal); Ketone-Dipstick 5 mg/dl (Negative); Leukocyte Esterase-Dipstick 100 /ul (Negative); Nitrite-Dipstick Negative (Negative); Occult Blood-Urine Negative /ul (Negative); Protein-Dipstick Negative (Negative); Urine Bilirubin Dipstick Negative (Negative); Urine Clarity Sl. Cloudy (Clear); Urine Urobilinogen Normal (Normal)
[2020-11-09 13:53] VITALS: BP 137/73; PULSE 90; TEMP 36.9; O2SAT 97
[2020-11-09 13:55] LABS: Bacteria 2+ /hpf (None Seen); Mucous, Urine RARE /hpf (<or=2+); Squamous Epithelial Cells - UA 0-5 SEEN /hpf (5-10); White Blood Cells 0-5 SEEN /hpf (0-5)
[2020-11-09 14:04] LABS: Fetal Fibronectin Negative
--- NOTE | 2020-11-09 15:07 | OB.TRI.HP_ITS ---
- Problem List (1) Threatened labor Status: Acute (2) Supervision of high-risk Status: Acute Qualifiers: Comment: PRR JANES 01/01/21 girl Ross Hernandes (Adolfo Lisy oni) Dilip History of Present Illness Date of Service: 11/09/20 Was patient seen by the physician?: Yes Reason For Visit: R/O LABOR Date of Service: 11/09/20 Final JANES: 01/01/21 Gestational age: 32 Weeks and 3 Days History of Present Illness: 25-year-old G4, P1 at 32 weeks gestation presenting with contractions. Patient has a history of cervical insufficiency and has a cerclage in place. is also complicated by chronic hypertension as well as gestational diabetes. Patient reports worsening contractions over the last day. Reports Contractions as frequent as every 3 minutes with least frequent contractions approximately every 6 minutes. Denies pain or burning with urination. Denies increased vaginal discharge. No recent intercourse. Allergies No Known Allergies Allergy (Verified 11/07/20 15:01) - Pertinent Past Medical History Medical History: Past Medical History (Last Reviewed 11/07/20 @ 15:02 by Hue Eaton) BMI greater than 40 (Resolved) 1 TM glucola, encourage healthy weight gain Chronic hypertension affecting (Resolved) start labetalol 100 BID, home bps, baseline urine PCR, CMP, EKG History of gestational diabetes in prior , currently (Resolved) 1 hour glucola given at [facility]B History of pre-eclampsia (Resolved) 81 mg at 14 weeks Right upper quadrant abdominal pain (Resolved) Surgical History: Past Surgical History (Last Reviewed 11/07/20 @ 15:02 by Hue Eaton) History of tonsillectomy History of cervical cerclage (Resolved) History of cholecystectomy 03/11/19 Laboratory Studies: Laboratory Tests 11/09/20 11/09/20 Range/Units 13:10 12:30 Urine Color Yellow (Yellow) Urine Clarity Sl. Cloudy (Clear) Urine pH 6.0 (5.0 - 8.0) Ur Specific Spicer 1.020 (1.002-1.030) Urine Protein Negative (Negative) mg/dl Urine Glucose (UA) Normal (Normal) mg/dl Urine Ketones 5 H (Negative) mg/dl Urine Occult Blood Negative (Negative) /ul Urine Nitrite Negative (Negative) Urine Bilirubin Negative (Negative) mg/dL Urine Urobilinogen Normal (Normal) mg/dl Ur Leukocyte Esterase 100 H (Negative) /ul Urine RBC 0 SEEN (0-5) /hpf Urine WBC 0-5 SEEN (0-5) /hpf Ur Squamous Epith Cells 0-5 SEEN (5-10) /hpf Urine Bacteria 2+ (None Seen) /hpf Urine Mucus RARE (<or=2+) /hpf Fibronectin Negative Review of Systems Constitutional: Denies: Chills, Fever Gastrointestinal: Reports: Abdominal Pain. Denies: Nausea, Vomiting Genitourinary: Denies: Dysuria, Frequency, Hematuria, Hesitancy, Urgency Gynecological: Denies: Vaginal bleeding, Vaginal discharge, Vaginal itching Physical Exam Vitals: Vital Signs Temp Pulse BP Pulse Ox 98.5 F 90 137/73 H 97 11/09/20 13:53 11/09/20 13:53 11/09/20 13:53 11/09/20 13:53 General: Alert, Oriented x3, Cooperative, No apparent distress, Well developed, Well nourished HEENT: Atraumatic, PERRLA, EOMI, Normocephalic Lungs: Normal air movement Abdomen: Soft, Non Tender, Non-Distended, Gravid, Appropriate for Gestational Age Extremities:: No edema Neurological: Cranial nerves II-XII grossly intact, Neuro grossly intact ENTRY LEVEL PROJECT COORDINATOR: Normal external genitalia Estimated gestational size: Appropriate for gestational size Cervix Dilation (cm): 0 - Cerclage not on tension and noted to be intact NST - FHR Rate Baby A Baseline: 140 Variability:: Moderate Accelerations:: 15 x 15 Decelerations:: None NST Reactive:: Yes FHR Category:: Category I Uterine Activity:: Difficulty tracing, patient reports approximately every 5 minutes, unable to palpate contractions Impression/Plan 25-year-old G4, P1 at 32 weeks gestation with a history of cervical insufficiency with cerclage in place, gestational diabetes, and chronic hypertension presenting to triage with contractions. Threatened labor -Patient reports frequent contractions as often as every 3 minutes over the last 24 hours correlate. Difficulty tracing contractions on toco. -Cervix is closed and cerclage is in place and not on tension with no evidence of vaginal bleeding. - fibronectin performed and is negative. -Cervical length performed and found to be 35 mm with no evidence of funneling. -Patient appears comfortable. -Urinalysis is positive for bacteria and leukocyte esterase. Prescription for Keflex sent to pharmacy for treatment of UTI as I suspect that UTI is likely the cause of contractions. -Reassurance provided that with negative fibronectin and normal cervical length, the chances of labor and delivery at this point are extremely low. Patient discharged home in stable condition with strict return precautions. Multi Select Codes - Visit Charges Office Visit/Consults: 71632 OV L3 Est - Urinary/Genital Urinary/Genital CPT Codes: 84211-26 non-stress test Interp
[2020-11-09] MEDS: Cephalexin 500 MG Capsule PO (15:28)
== END 2020-11-09 15:35 | disposition home or self-care (01) ==
LOC: WPOUT 12:22 → OBT 12:23
PROVIDERS: PCP Internal Medicine; Visit Provider Obstetrics & Gynecology
DX: O09.93 Supervision of high risk pregnancy, unspecified, third trimester (principal); O60.03 Preterm labor without delivery, third trimester; O34.33 Maternal care for cervical incompetence, third trimester; O10.913 Unspecified pre-existing hypertension complicating pregnancy, third trimester; O23.43 Unspecified infection of urinary tract in pregnancy, third trimester; O32.1XX0 Maternal care for breech presentation, not applicable or unspecified; Z3A.32 32 weeks gestation of pregnancy; Z87.59 Personal history of other complications of pregnancy, childbirth and the puerperium
CPT/HCPCS: 59025; 59050; 76815; 76817; 81001; 82731; 87086; 87088; 99218; G0378

== ENCOUNTER → 2020-11-13 08:52 | Outpatient (CLI) | payer MEDICAID, SELFPAY ==
[2020-09-14 09:59] VITALS: BMI 47.0
[2020-11-09 12:37] VITALS: BMI 47.7
--- NOTE | 2020-11-13 08:56 | US_ITS ---
STUDY: OBSTETRICAL ULTRASOUND - BIOPHYSICAL PROFILE REASON FOR EXAM: Female, 25 years old SAMRA -- SUPERVISION OF HIGH RISK -- HX OF DIABETES -- HX OF COVID IN SEP LMP: 03/27/2020. PRIOR ULTRASOUND: Comparison is made with prior sonogram dated 11/09/2020. TECHNIQUE: Transabdominal TECHNICAL QUALITY: Adequate. FINDINGS: There is a single intrauterine fetus. The fetus is in a breech presentation. There is demonstrated cardiac activity with a heart rate of 141 bpm. There is a normal amniotic fluid volume. The largest amniotic fluid pocket measures 3.7 cm x 2.5 cm. The amniotic fluid index (SAMRA) is 10.2 cm. The placenta is anterior in location and is not low lying. There are Grade 1 placental changes. Age by LMP: 33 weeks, 0 days. JANES by LMP: 01/01/2021. age by prior US: 34 weeks, 2 days. JANES by prior US: 12/23/2020. BIOPHYSICAL PROFILE: Breathing Movements (FBM): 2 Gross Body Movements (GBM): 2 Tone (FT): 2 Amniotic Fluid Volume (AFV): 2 TOTAL SCORE: 8 / 8 US/Biophysical Prof W/O Non Stres IMPRESSION: Normal biophysical profile of 8/8. Electronically Signed: Anurag Sotelo, at 11:20 EST , Service support ,
== END ==
PROVIDERS: PCP Internal Medicine; Referring Provider Obstetrics & Gynecology; Visit Provider Obstetrics & Gynecology
DX: O10.919 Unspecified pre-existing hypertension complicating pregnancy, unspecified trimester (principal); Z3A.00 Weeks of gestation of pregnancy not specified
CPT/HCPCS: 76819

== ENCOUNTER → 2020-11-20 08:51 | Outpatient (CLI) | payer MEDICAID, SELFPAY ==
[2020-09-14 09:59] VITALS: BMI 47.0
[2020-11-09 12:37] VITALS: BMI 47.7
--- NOTE | 2020-11-20 08:53 | US_ITS ---
STUDY: OBSTETRICAL ULTRASOUND - BIOPHYSICAL PROFILE REASON FOR EXAM: Female, 25 years old BPP WITH SAMRA AND CERVICAL LENGTH -- HX OF HYPERTENSION, DIABETES AND COVID IN SEP. -- HX OF CERCLAGE LMP: 03/27/2020. PRIOR ULTRASOUND: Comparison is made with prior study dated 11/13/2020. TECHNIQUE: Transabdominal TECHNICAL QUALITY: Adequate. FINDINGS: There is a single intrauterine fetus. The fetus is in a breech presentation. There is demonstrated cardiac activity with a heart rate of 143 bpm. There is a normal amniotic fluid volume. The largest amniotic fluid pocket measures 6.1 cm x 2.4 cm. The amniotic fluid index (SAMRA) is 10.4 cm. The placenta is anterior in location and is not low lying. There are Grade 1 placental changes. The cervix measures 4 cm in length. Age by LMP: 34 weeks, 0 days. JANES by LMP: 01/01/2021. age by prior US: 35 weeks, 2 days. JANES by prior US: 12/23/2020. BIOPHYSICAL PROFILE: Breathing Movements (FBM): 2 Gross Body Movements (GBM): 2 Tone (FT): 2 Amniotic Fluid Volume (AFV): 2 TOTAL SCORE: 8 / 8 US/Biophysical Prof W/O Non Stres IMPRESSION: Normal biophysical profile of 06/16. Electronically Signed: Anurag Sotelo, at 11:06 EST , Service support ,
== END ==
PROVIDERS: PCP Internal Medicine; Referring Provider Obstetrics & Gynecology; Visit Provider Obstetrics & Gynecology
DX: O10.919 Unspecified pre-existing hypertension complicating pregnancy, unspecified trimester (principal); Z3A.00 Weeks of gestation of pregnancy not specified
CPT/HCPCS: 76817; 76819

== ENCOUNTER 2020-11-27 13:45 | Inpatient (IN) | payer MEDICAID, SELFPAY ==
[2020-09-14 09:59] VITALS: BMI 47.0
[2020-11-23 10:57] VITALS: BMI 46.5
[2020-11-27] VITALS (105 sets, daily range): BP systolic 122–181; BP diastolic 61–93; PULSE 73–122; RESP 15–18; TEMP 36.6–37.4; O2SAT 88–100; BMI 48.7
--- NOTE | 2020-11-27 07:03 | PLAC_PTH ---
PATIENT: GUNNER SIMON LOC: [facility] U#:[id number] AGE/SX: 25/F ROOM: WP014 RE11/27/[address]: Dr. Kaitlynn Metzger MD : 1995 BED: 1 DIS: 11/29/2020 SPEC #: [id number] RECD: 11/28/20 00:28 STATUS: NOREEN REAnita #: [id number] FENG: 11/27/20 07:[address]: Kaitlynn Metzger DEPT: SURGICAL PATHOLOGY RECD BY: Natasha Ulrich ENTERED: 11/28/20 11:03 SP TYPE: PLACENTA OTHR DR: Dr. Opal Espinosa MD Tissues: A - Placenta, NOS B - Fallopian tube Procedures: Surgery Specimen Level II Surgery Specimen Level V HEADER OPERATION: section; tubal ligation PRE-OP DIAGNOSIS: Preeclampsia; sterilization TISSUE SUBMITTED: A - Placenta, B - Fallopian tubes MICROSCOPIC DIAGNOSIS A. Placenta: Placental disc - third trimester placenta (444 gm). Membranes - no pathologic diagnosis. Umbilical cord - three blood vessels and no pathologic diagnosis. B. Bilateral fallopian tubes, salpingectomy: Bilateral fallopian tubes including fimbrial ends, no pathologic diagnosis. SJ:yesenia 11/30/20 MICROSCOPIC DESCRIPTION Slides are reviewed. GROSS DESCRIPTION A - SPECIMEN: PLACENTA / CLINICAL INFORMATION: A. Weight: 3.095 kg B. Gestational Age: 35 weeks C. Sex: Female PLACENTAL WEIGHT (POST FIXATION): 444 gm PLACENTAL DIMENSIONS: 19 x 15 x 3.3 cm PLACENTAL SHAPE: Usual ovoid PLACENTAL WEIGHT FOR GESTATIONAL AGE: Within 10-99th percentile MEMBRANES - Present A. Insertion: Marginal B. Site of rupture from edge: The membranes are segmented and distance of rupture cannot be assessed. C. Color of membrane: Cardoso-byers D. Abnormalities: None UMBILICAL CORD - Present A. Color: Cardoso-byers B. Insertion: Central C. Length: 28 cm D. Diameter: 1 cm E. Number of vessels: Three F. Abnormalities: None PLACENTAL DISC - Present A. Color of surface: Cardoso-byers B. surface abnormalities: None C. Maternal cotyledons: Focally minimally disrupted D. Attached retro placental clot: A few blood clots are noted on the maternal surface. E. Cut surface: Dark red and spongy F. Lesions: None G. Separate clot: Multiple blood clots are noted weighing in aggregate 78 gm and measuring in aggregate 10 x 9 x 3 cm. SECTIONS SUBMITTED: 1. Membrane roll 2. Cord, maternal end 3. Cord, end 4. Placental disc, and maternal surfaces 5. Placental disc, and maternal surfaces 6. Placental disc, and maternal surfaces, disrupted portion of the maternal surface including two blood clots adherent to the maternal surface SJ:yesenia 11/29/19 TC:5 B - Received in fixative is one container labeled with the patient's name and designated bilateral fallopian tubes, left with suture. The specimen consists of two fallopian tubes with an average length of 7.5 cm and has an average diameter of 0.8 cm. Both fallopian tubes have normal fimbriated ends. No mass lesions are identified. Staff Design Engineer sections are submitted in two cassettes as follows: 1 - right fallopian tube, 2 - left fallopian tube. / AM:yesenia 11/28/20 TC:5 CPT: 62183 x2, 32811
--- NOTE | 2020-11-27 08:56 | US_ITS ---
STUDY: OBSTETRICAL ULTRASOUND - BIOPHYSICAL PROFILE REASON FOR EXAM: Female, 25 years old LOW SAMRA HX OF CERCLAGE LMP: 03/27/2020 PRIOR ULTRASOUND: Comparison is made with prior examination dated 11/20/2020. TECHNIQUE: Transabdominal TECHNICAL QUALITY: Adequate. FINDINGS: There is a single intrauterine fetus. The fetus is in a breech presentation. There is demonstrated cardiac activity with a heart rate of 140 bpm. The largest amniotic fluid pocket measures 2.9 cm x 1.9 cm. The amniotic fluid index (SAMRA) is 7.2 cm. The placenta is anterior in location and is not low lying. There are Grade 2 placental changes. Age by LMP: 35 weeks, 0 days. JANES by LMP: 01/01/2021. age by prior US: 36 weeks, 2 days. JANES by prior US: 12/23/2020. BIOPHYSICAL PROFILE: Breathing Movements (FBM): 2 Gross Body Movements (GBM): 2 Tone (FT): 2 Amniotic Fluid Volume (AFV): 0 TOTAL SCORE: 6 / 8 US/Biophysical Prof W/O Non Stres IMPRESSION: biophysical profile of 6/8. Decreased amniotic fluid index Electronically Signed: Anurag Sotelo MD at 10:40 EST , Service support ,
[2020-11-27 12:03] LABS: Absolute Lymphocyte Count 2.23 X10^3/uL (0.83-4.51); Absolute Neutrophil Count 6.6 X10^3/uL (2.0-7.7); Basophil# 0.01 X10^3/uL; Basophil% 0.1 % (0-1); Eosinophil# 0.06 X10^3/uL; Eosinophils% 0.6 % (0-5); Hematocrit 37.6 % (37-47); Hemoglobin 12.4 g/dL (12.0-15.0); Lymphocyte # 2.23 X10^3/ul (4.0); Mean Corpuscular Hgb 27.9 pg (27.0-32.0); Mean Corpuscular Volume 84.7 fL (81-99); Mean Platelet Vol. 9.3 fl (6.2-12.0); Monocyte# 0.72 X10^3/uL; Monocyte% 7.4 % (0-10); NRBC Flagged by Analyzer 0 % (0-5); Neutrophil # 6.62 X10^3/uL (2.7-7.7); Neutrophil % 68.2 % (47-70); Platelet Count 356 K/mm3 (150-450); RBC Distribution Width CV 13.1 % (11.6-14.6); RBC Distribution Width SD 40.1 fl (35.1-43.9); Red Blood Count 4.44 M/mm3 (4.2-5.4); White Blood Count 9.7 K/mm3 (4.4-11.0)
[2020-11-27 12:19] LABS: ALB/GLOB Ratio 0.6 RATIO (0.9-2.4); AST(SGOT) 11 U/L (15-37); Alanine Aminotransfer ALT/SGPT 24 U/L (13-56); Albumin, Serum 2.7 g/dL (3.2-5.0); Alkaline Phosphatase 139 U/L (45-117); Anion Gap 6 (5-15); BUN 8 mg/dL (7-18); BUN/Creat Ratio 14.7 RATIO (10-20); Calcium,Total 9.1 mg/dL (8.5-10.1); Chloride 107 mmol/L (98-107); Creatinine, Serum 0.54 mg/dL (0.55-1.02); EST Glomerular Filtration Rate 145 mL/min (>60); Est Glom Filt Rate - Afr Amer 175 mL/min (>60); Globulin 4.3 g/dL (2.2-4.2); Glucose 74 mg/dL (74-106); Potassium 3.9 mmol/L (3.5-5.1); Sodium Level 139 mmol/L (136-145)
[2020-11-27 12:27] LABS: Protein, Urine (Random) < 6.0 mg/dL (<11.9); Protein:Creat Ratio 239 mg/g CRE (0-200)
[2020-11-27] MEDS: Lactated Ringers 1,000 ML 999 ML IV (14:05)
[2020-11-27] MEDS: hydrALAZINE 20 MG/ML Vial 5 MG IV (14:15)
[2020-11-27] MEDS: Magnesium Sulfate 4gm/100mL 4 GM/100 ML IV.SOLN. IV (14:23)
[2020-11-27 14:26] LABS: Bedside Glucose 80 mg/dL (70-110)
--- NOTE | 2020-11-27 14:34 | PCM.HPOB.BLA ---
- Problem List (1) Preeclampsia, severe Status: Acute (2) Elevated troponin Status: Acute Comment: 10/17- STO at [facility]. given bmz course. (3) History of tetanus, diphtheria, and acellular pertussis booster vaccination (Tdap) Status: Acute Comment: 11/07/20 (4) Obesity affecting Status: Acute Qualifiers: Comment: 1 tm glucola abnl. encourage healthy weight gain in . (5) Status: Acute Qualifiers: Comment: NIPT low risk, carrier screening neg for . anatomy normal (6) Supervision of high-risk Status: Acute Qualifiers: Comment: PRR JANES 01/01/21 girl Ross Hernandes (Lisy Mata) Dilip (7) Tachycardia Status: Acute Comment: admitted to hospital 10/17 (8) Threatened labor Status: Acute (9) COVID-19 affecting , antepartum Status: Chronic Comment: growth US and baby ASA (10) Cervical insufficiency during , antepartum Status: Chronic Comment: M consult for cerclage placement. prophylactic cerclage placement 12-13 wks. TVCL 1 wk after cerclage placement; progesterone injections recommended, CL 42.8mm 08/02 US (11) Chronic hypertension affecting Status: Chronic Comment: procardia and labetalol. well controlled. baseline labs ordered, EKG. 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 endocrine following. diet controlled. (14) History of pre-eclampsia Status: Chronic Comment: APL testing ordered, plan 81mg asa at 14 weeks. baseline labs. History and Physical Date of Admission: 11/27/20 Intake Vital Signs 11/27/20 Height 5 ft 6 in 11/27/20 Weight: 302 lb 11/27/20 BMI 48.7 11/27/20 BP 150/110 H Intake Visit Reasons: NST ONLY - SAMRA FIRST Chief Complaint: est ob NST ONLY Senior Java Data Architect Required: No Is patient in pain?: No Allergies No Known Allergies Allergy (Verified 11/27/20 10:02) Medications multivitamin no.47-iron fum 27 mg-folate no.1 1 mg-dha 300 mg capsule 1 cap PO DAILY 01/16/20 [History Confirmed 11/27/20] blood pressure test kit-large See Rx Instructions .ROUTE .MEDSUPPLY #1 ea 09/20/20 [Rx Confirmed 11/27/20] nifedipine 60 mg tablet,extended release 24 hr 60 mg PO DAILY #30 tab 09/25/20 [Rx Confirmed 11/27/20] Aspirin [Aspirin, Baby] 81 mg PO DAILY@0800 10/17/20 [History Confirmed 11/27/20] Vit No.130/Iron/Folic [ Tablet] 1 ea PO DAILY 10/17/20 [History Confirmed 11/27/20] insulin detemir U-100 100 unit/mL (3 mL) subcutaneous pen 15 unit SC QHS #15 ml 11/12/20 [Rx Confirmed 11/27/20] pen needle, diabetic 32 gauge x 5/32 See Rx Instructions .ROUTE .MEDSUPPLY #50 ea 11/12/20 [Rx Confirmed 11/27/20] [place] (PF) 275 mg/1.1 mL subcutaneous auto-injector See Rx Instructions .ROUTE .COMPLEX #1.1 ml NS 11/14/20 [Rx Confirmed 11/27/20] labetalol 200 mg tablet 300 mg PO BID #90 tab 11/15/20 [Rx Confirmed 11/27/20] Last Menstral Period: 03/27/20 Zika: Zika virus screening: Negative : No PFSH PFSH Medical History BMI greater than 40 (Resolved) Chronic hypertension affecting (Resolved) History of gestational diabetes in prior , currently (Resolved) History of pre-eclampsia (Resolved) Right upper quadrant abdominal pain (Resolved) Surgical History History of tonsillectomy (Acute) History of cervical cerclage (Resolved) History of cholecystectomy (Resolved) Family History Mother Diabetes Hypertension Aunt Breast cancer Uncle Colon cancer Father Hypertension Social History (Updated 11/27/20 @ 12:21 by Lynda Posadas NP, PRESCHOOL ASSISTANT PRINCIPAL-C) adopted: No household members: family housing: house number of children: 1 current occupational status: employed current occupation: [employer] pets and animals: No history of recent travel: No sexually active: Yes Smoking Status: Never smoker second hand exposure: Yes alcohol intake: current details: social- not while substance use type: does not use caffeine: Yes what type of physical activity do you participate in: none seatbelt use: always do you feel safe at home: Yes additional social history: Spouse: Dilip- install garage doors Pregancy History 4 Elective abortions Hx Para 1 Spontaneous abortions Hx # Term Pregnancies Ectopic pregnancies Hx # Pregnancies 2 Multiple births # of living children 1 Past Pregnancies Del. Date Name GA/Weeks Outcome Route Bth Weight Infant Gen Labor Lgth Anesthesia Del Locat Provider FOB Unknown Adolfo- 2012 19 live - Unknown Lisy 2013 24 live - Female 05/21/172016 Cecilio 34 live - full term 7lbs Male 16 hours none Vic Cherry Delivery Date: Stillborn Lidya,Cee Delivery Date: 8 days later Lidya,Cee Delivery Date: 05/21/17 Cervical Insufficiency, Cerclage, Pre E, GDMA2 Wilson,Viktoriya HPI NST ONLY - SAMRA FIRST : Details: GUNNER SIMON is a 25 year old who presents for 6/8 BPP, 8/10 with reactive nst but severely elevated bps in triage. labs WNL. co right eye floaters in vision also OB Visit JANES Calculator Estimated Delivery Date Method Current WG Current Estimate 01/01/21 LMP (Certain) 35w 0d Other Estimates 01/01/21 Ultrasound #1 35w 0d Expected Delivery Route/Plan Labor Preferences- CB/BF classes: no labor support person: Dilip labor intervention preferences: [] pain management options preferred: epidural cut cord/dad catch: cord : yes PP control planned: BS vs IUD discussed possible routes of delivery and associated risks: [] special requests: [] Specific Issue/Plans flu vaccine: yes tdap vaccine: yes rhogam: na LARC form signed: yes ACOG trimester education reviewed and updated. see problem list details for updated plan management information and see below for orders placed at this visit. GA appropriate handout given. Initial Weight: Not Recorded Date EGA Weight BP Urine Prot Glucose FHR FuHt Pres Dilation Effaced St Visit Note 06/29/20 13w 3d 286 lb 4 oz 136/70 Negative Negative 145 SM- no vb cramping had cerclage placed and fu visit the 07/25/20 17w 1d 290 lb 130/86 145 SM- BS under 90 fasting under 120 at 2 hrs with diet alone. on progesterone injections. fu us with MFM 08/09/20 19w 2d 290 lb 4 oz 144/90 Negative Negative GP - margaret injection only 08/16/20 20w 2d 291 lb 2 oz 150/70 GP - margaret injection only 08/24/20 21w 3d 290 lb 4 oz Negative Negative 140 SM- no vb lof good fm no regular ctx 09/20/20 25w 2d 296 lb 150/96 145 25 SM SM- no vb lof good fm no reuglar ctx. no GREEN BV, discussed increasing procardia to 60mg. check cbc cmp today. reviewed preeclampsia precautions. negative protein in urine 10/25/20 30w 2d 292 lb 130/88 Negative Negative 140 30 SM- no vb lof good fm no regular ctx. admitted for palpitations and had elevated troponins. evaluated at [facility], received steroids. SM- no vb lof good fm no regular ctx. admitted for palpitations and had elevated troponins. evaluated at [facility], received steroids. uBS well controlled 11/07/20 32w 1d 295 lb 4 oz 130/80 Negative Negative 160 33 MH-No VB, LOF. >50% BS WNL. Considering bilat salping-will need title 19. Growth US pending. Reactive NST 11/27/20 35w 0d 302 lb 150/110 SM- NST for 04/16 BPP. elevated bps- to l and d for llabs and serial bps. ROS Const Reports system reviewed and no additional complaints, except as documented Card Reports system reviewed and no additional complaints, except as documented Resp Reports system reviewed and no additional complaints, except as documented GI Reports system reviewed and no additional complaints, except as documented, Reports nausea Reports system reviewed and no additional complaints, except as documented Musc Reports system reviewed and no additional complaints, except as documented all other systems reviewed and negative Exam Const General: cooperative, healthy appearing, comfortable [facility] Head: normal to inspection Nose: external nose normal Face and sinus: normal facial exam Neck Neck: normal visual inspection, full ROM, no lymphadenopathy Thyroid: thyroid normal Chest Chest palpation & inspection: normal inspection of the chest Resp Effort & Inspection: normal respiratory effort GI Inspection: normal to inspection Palpation: soft, other (gravid uterus) Other: infant breech and appropriate size for gestational age Other: Cervical Exam: closed cerclage intact Extrem General: pedal edema ACOG First Trimester First Trimester: Discussed Diagnostics Diagnostics Diagnostics Hgb 12.4 g/dL (12.0-15.0) 11/27/20 Hct 37.6 % (37-47) 11/27/20 Details: HIV: Urine Culture: Sequential Screen: NIPT Screen: Office Procedures OB NST Non-Stress Test Indications for Monitoring: Yes diabetes, Yes hypertension, Yes other (04/16 bpp) Heart Rate Baseline: 140 Heart Rate Variability: moderate Movement: Present Heart Rate Accelerations: Present Decelerations: Absent Contractions: Absent Impression: Yes Reactive Non-Stress Test Category 1 Assessment & Plan Problems 1. History of pre-eclampsia Z87.59 APL testing ordered, plan 81mg asa at 14 weeks. baseline labs. 2. Obesity affecting O99.210 1 tm glucola abnl. encourage healthy weight gain in . 3. Gestational diabetes O24.419 dianosed 1TM. endocrine following. diet controlled. 4. COVID-19 affecting , antepartum O98.519; U07.1 growth US and baby ASA 5. Tachycardia R00.0 admitted to hospital 10/17 6. Threatened labor O47.00 7. Genital HSV A60.00 plan acyclovir at 36 weeks 8. Elevated troponin R77.8 10/17- [facility] [[email or web address] at [facility]. given bmz course. 9. Supervision of high-risk O09.90 PRR JANES 01/01/21 girl Ross NEWTON Cecilio (Lisy Mata) Dilip 10. Z34.90 NIPT low risk, carrier screening neg for . anatomy normal 11. Cervical insufficiency during , antepartum O34.30 MFM consult for cerclage placement. prophylactic cerclage placement 12-13 wks. TVCL 1 wk after cerclage placement; progesterone injections recommended, CL 42.8mm 08/02 US 12. Chronic hypertension affecting O10.919 procardia and labetalol. well controlled. baseline labs ordered, EKG. growth us q 4 weeks after 28 and weekly nst/samra after 32 and deliver at 38 NL US 08/30; NL BPP 11/13 13. History of tetanus, diphtheria, and acellular pertussis booster vaccination (Tdap) Z92.29 11/07/20 25 yo with chtn and gdma2 with SI preeclampsia with severe features s/p BMZ 6 weeks ago plan admit and delivery, magnesium sulfate and hydralazine per protocol. RLTCS and BS After discussing the patient's diagnosis and treatment plan options, patient wishes to proceed with surgical management. I have discussed with the patient the risks, benefits, and alternatives of the procedure which include but are not limited to risks of anesthesia, bleeding, infection, possible damage to bowel, bladder, or surrounding vasculature which could lead to additional surgery to evaluate any complications. Patient agrees to procedure and wishes to proceed. ACOG/uptodate references given for additional information regarding procedure. Orders Orders: OB NST Today O24.419, O99.210 Lynda Posadas PRESCHOOL ASSISTANT PRINCIPAL, PRESCHOOL ASSISTANT PRINCIPAL-C POC Urinalysis 2 Dip (Clinic) Today Lynda Posadas NP, PRESCHOOL ASSISTANT PRINCIPAL-C Biophysical Prof W/O Non Stres 11/28/20 O10.919, O24.419, O99.210 Dr. Kaitlynn Metzger MD Comprehensive Metabolic Profil Today O10.919 Lynda Posadas PRESCHOOL ASSISTANT PRINCIPAL, PRESCHOOL ASSISTANT PRINCIPAL-C CBC W/Diff, Automated Today O10.919 Lynda Posadas NP, PRESCHOOL ASSISTANT PRINCIPAL-C Protein+Creatinine Ratio,Urine Today O10.919 Lynda Posadas PRESCHOOL ASSISTANT PRINCIPAL, PRESCHOOL ASSISTANT PRINCIPAL-C Coding Level of Care Code Off vis,est,level 2 Diagnoses History of pre-eclampsia Z87.59 Obesity affecting O99.210 Gestational diabetes O24.419 COVID-19 affecting , antepartum O98.519; U07.1 Tachycardia R00.0 Threatened labor O47.00 Genital HSV A60.00 Elevated troponin R77.8 Supervision of high-risk O09.90 Z34.90 Cervical insufficiency during , antepartum O34.30 Chronic hypertension affecting O10.919 History of tetanus, diphtheria, and acellular pertussis booster vaccination (Tdap) Z92.29 Additional Codes Non-Stress Test (31665)
[2020-11-27] MEDS: hydrALAZINE 20 MG/ML Vial 10 MG IV (14:43)
[2020-11-27] MEDS: Magnesium Sulfate 4gm/100mL 2 GM/50 ML IV.SOLN. IV (14:44)
[2020-11-27] MEDS: Magnesium Sulfate 20 GM/500 ML BAG IV (15:01)
[2020-11-27] MEDS: Lactated Ringers 1,000 ML 50 ML IV ×2 (15:06→22:45)
[2020-11-27] MEDS: Labetalol (Prefilled) 20 MG/4 ML IV (15:21)
[2020-11-27] MEDS: Labetalol 100 MG/20 ML Vial 40 MG IV (15:36)
[2020-11-27] MEDS: Acetaminophen 500 MG Tablet 1000 MG PO ×2 (15:40→21:47)
[2020-11-27] MEDS: Sodium Citrate/Citric Acid 30 ML UDC PO (15:50)
--- NOTE | 2020-11-27 16:58 | PCM.OPRPT ---
Problem List (1) Preeclampsia, severe Status: Acute (2) Elevated troponin Status: Acute Comment: 10/17- STO at [facility]. given bmz course. (3) History of tetanus, diphtheria, and acellular pertussis booster vaccination (Tdap) Status: Acute Comment: 11/07/20 (4) Obesity affecting Status: Acute Qualifiers: Comment: 1 tm glucola abnl. encourage healthy weight gain in . (5) Status: Acute Qualifiers: Comment: NIPT low risk, carrier screening neg for . anatomy normal (6) Supervision of high-risk Status: Acute Qualifiers: Comment: PRR JANES 01/01/21 girl Ross Hernandes (Lisy Mata) Dilip (7) Tachycardia Status: Acute Comment: admitted to hospital 10/17 (8) Threatened labor Status: Acute (9) COVID-19 affecting , antepartum Status: Chronic Comment: growth US and baby ASA (10) Cervical insufficiency during , antepartum Status: Chronic Comment: MFM consult for cerclage placement. prophylactic cerclage placement 12-13 wks. TVCL 1 wk after cerclage placement; progesterone injections recommended, CL 42.8mm 08/02 US (11) Chronic hypertension affecting Status: Chronic Comment: procardia and labetalol. well controlled. baseline labs ordered, EKG. 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 endocrine following. diet controlled. (14) History of pre-eclampsia Status: Chronic Comment: APL testing ordered, plan 81mg asa at 14 weeks. baseline labs. Delivery Classification: KATHIA Final JANES: 01/01/21 Gestational age: 35 Weeks and 0 Days team foreman: Harman Peterson Type of Anesthesia:: Spinal Special Medications: monse Implants Used: nne Date of Procedure: 11/27/20 Pre-Operative Diagnosis: preeclampsia with severe features, sterilization Post-Operative Diagnosis: same Indications for : Desires elective sterilization, Breech Description of Procedure: The patient is a [ ] presented for [repeat] . Spinal anesthesia was placed without difficulty. Naqvi catheter was placed. The patient was placed in the dorsal supine position with leftward tilt. Patient was prepped and draped in the normal sterile fashion. Pfannenstiel skin incision was made with the scalpel and carried through to the underlying layer of fascia with the scalpel. Fascia was nicked in the midline and the incision extended laterally. The rectus bellies were dissected off superiorly and inferiorly with out complication both sharply and bluntly. The peritoneum was entered digitally. The incision was stretched and a low transverse uterine incision was made with the scalpel. The 's buttox was delivered atraumatically followed by the body and the the anterior and posterior shoulders without complication the rest of the delivered. The cord was clamped and cut and the was handed off to awaiting nurse. The placenta was delivered spontaneously immediately following and was noted to be intact and have a three-vessel cord. The uterus was exteriorized cleared of all clots and debris, and the incision was closed in a double layer closure using #1 Monocryl. The ovaries and fallopian tubes were noted to be within normal limits. Patient had desired sterilization and was counseled preoperatively regarding irreversibility and permanency. Therefore bilateral fallopian tubes were elevated and transected across using a LigaSure device starting proximally to distally without complication the entire fallopian tubes were removed. The uterus was returned to the maternal abdomen and gutters were cleared of all clots and debris. Gloves were changed prior to fascial closure. Fascia was closed with 0 PDS in a running fashion. Subcutaneous tissue was copiously irrigated and the skin was closed with 3-0 Monocryl in a subcuticular fashion. Mepilex dressing was applied without complication. cervical cerclage was removed vaginally at the end of the procedure without complication. Patient was taken to recovery in stable condition. Amniotic Membrane Rupture Type: Artificial Amniotic Fluid Description: Clear Placenta Disposition: [facility] Cord Entanglement: None Esitmated Blood Loss (ml): 500 Gender: Female Delayed cord clamping: Yes Antibiotic Given: Ancef 3 grams IV x1 Pt instructed on risks of surgery: Bleeding, Anesthesia Risks, Infection, Permanency, Injury to surrounding structure(s) including bowel and bladder Complications: None - Admit VTE Documentation VTE Present on Admission: No VTE Mechan Device Prophylaxis: SCD's Multi Select Codes - Urinary/Genital Urinary/Genital CPT Codes: 18682 C/S+TL - bilateral salpingectomy, 98520 delivery+ Care([facility])
[2020-11-27 17:40] LABS: Bedside Glucose 94 mg/dL (70-110)
[2020-11-27] MEDS: Oxytocin 30 units/NS 500 ml 30 UNITS/500 ML IV.SOLN 167 UNITS IV (17:40)
[2020-11-27] MEDS: Ketorolac 30 MG/ML Syringe IV (22:23)
[2020-11-28] VITALS (33 sets, daily range): BP systolic 123–142; BP diastolic 58–87; PULSE 77–101; RESP 14–18; TEMP 36.9–37.5; O2SAT 93–99
[2020-11-28 00:52] LABS: Pathology Specimen OB SEE PATHOLOGY REPORT
[2020-11-28 00:54] LABS: Pathology Specimen OB SEE PATHOLOGY REPORT
--- NOTE | 2020-11-28 01:09 | NURSING ---
Pt up at edge of bed with RN present. Pt able to march in place and ambulate a few steps over to stabilet warmer. Pt tolerated well. Pt back into bed.
[2020-11-28] MEDS: Magnesium Sulfate 20 GM/500 ML BAG IV ×2 (01:55→11:01)
[2020-11-28] MEDS: Acetaminophen 500 MG Tablet 1000 MG PO ×4 (03:52→22:55)
[2020-11-28] MEDS: Ketorolac 30 MG/ML Syringe IV ×3 (04:46→16:31)
[2020-11-28 05:22] LABS: Hematocrit 31.3 % (37-47); Hemoglobin 10.3 g/dL (12.0-15.0); Mean Corp Hgb Conc 32.9 g/dL (32-36); Mean Corpuscular Hgb 28.2 pg (27.0-32.0); Mean Corpuscular Volume 85.8 fL (81-99); Mean Platelet Vol. 9.2 fl (6.2-12.0); Platelet Count 314 K/mm3 (150-450); RBC Distribution Width CV 13.5 % (11.6-14.6); RBC Distribution Width SD 41.3 fl (35.1-43.9); Red Blood Count 3.65 M/mm3 (4.2-5.4); White Blood Count 9.3 K/mm3 (4.4-11.0)
[2020-11-28 05:40] LABS: ALB/GLOB Ratio 0.6 RATIO (0.9-2.4); AST(SGOT) 18 U/L (15-37); Alanine Aminotransfer ALT/SGPT 19 U/L (13-56); Albumin, Serum 2.1 g/dL (3.2-5.0); Alkaline Phosphatase 110 U/L (45-117); Anion Gap 8 (5-15); BUN 9 mg/dL (7-18); BUN/Creat Ratio 16.2 RATIO (10-20); Chloride 104 mmol/L (98-107); Creatinine, Serum 0.55 mg/dL (0.55-1.02); EST Glomerular Filtration Rate 142 mL/min (>60); Est Glom Filt Rate - Afr Amer 171 mL/min (>60); Estimated Creatinine Clearance 146.38 ml/min; Globulin 3.5 g/dL (2.2-4.2); Glucose 79 mg/dL (74-106); Potassium 3.7 mmol/L (3.5-5.1); Protein, Total 5.6 g/dL (6.4-8.2); Sodium Level 136 mmol/L (136-145)
[2020-11-28 06:36] LABS: Bedside Glucose 79 mg/dL (70-110)
[2020-11-28] MEDS: Senna/Docusate Sodium 1 Tablet PO (10:05)
[2020-11-28] MEDS: Lactated Ringers 1,000 ML 50 ML IV (10:06)
[2020-11-28] MEDS: Labetalol 200 MG Tablet 300 MG PO ×2 (11:10→22:55)
[2020-11-28] MEDS: NIFEdipine 60 MG Tablet PO (12:10)
[2020-11-28] MEDS: 0.9% Saline Lock 10 ML Syringe IV (16:31)
[2020-11-28] MEDS: Enoxaparin 40 MG/0.4 ML Syringe SC (18:03)
[2020-11-28] MEDS: Naproxen 250 MG Tablet 500 MG PO (22:55)
[2020-11-29] VITALS (11 sets, daily range): BP systolic 124–149; BP diastolic 60–88; PULSE 90–100; RESP 16–18; TEMP 37.1–37.3; O2SAT 98–99
[2020-11-29] MEDS: Acetaminophen 500 MG Tablet 1000 MG PO ×3 (04:51→16:51)
[2020-11-29] MEDS: Naproxen 250 MG Tablet 500 MG PO ×2 (06:45→14:43)
--- NOTE | 2020-11-29 07:44 | PCM.PN.OB ---
Patient Problems: Active and Suspected Problems (Last Reviewed 11/27/20 @ 10:02 by Viktoriya Wilson) Preeclampsia, severe (Acute) Threatened labor (Acute) History of tetanus, diphtheria, and acellular pertussis booster vaccination (Tdap) (Acute) 11/07/20 Tachycardia (Acute) admitted to hospital 10/17 Elevated troponin (Acute) 10/17- STO at [facility]. given bmz course. Obesity affecting (Acute) 1 tm glucola abnl. encourage healthy weight gain in . (Acute) NIPT low risk, carrier screening neg for . anatomy normal Supervision of high-risk (Acute) PRR JANES 01/01/21 girl Ross Hernandes (Lisy Mata) Dilip Subjective: LATE ENTRY: PATIENT SEEN 11/28/20 AT 0730 Patient doing well without complaints. Tolerating PO. Ambulating and voiding without difficulty. Breast feeding well. Denies chest pain, shortness of breath, calf pain/swelling, fevers, chills, lightheadedness. Denies headaches, blurred vision, chest pain, right upper quadrant pain, and epigastric pain. Objective: Laboratory Tests 11/28/20 11/28/20 11/28/20 Range/Units 06:25 05:05 05:05 WBC 9.3 (4.4-11.0) K/mm3 RBC 3.65 L (4.2-5.4) M/mm3 Hgb 10.3 L (12.0-15.0) g/dL Hct 31.3 L (37-47) % MCV 85.8 (81-99) fL MCH 28.2 (27.0-32.0) pg MCHC 32.9 (32-36) g/dL RDW Std Deviation 41.3 (35.1-43.9) fl RDW Coeff of Yobani 13.5 (11.6-14.6) % Plt Count 314 (150-450) K/mm3 MPV 9.2 (6.2-12.0) fl Immature Gran % (Auto) (0.0-0.9) % Neut % (Auto) (47-70) % Lymph % (Auto) (19-41) % Wilson % (Auto) (0-10) % Eos % (Auto) (0-5) % Baso % (Auto) (0-1) % Absolute Neuts (auto) (2.0-7.7) X10^3/uL Absolute Lymphs (auto) (0.83-4.51) X10^3/uL Nucleated RBC % (0-5) % Sodium 136 (136-145) mmol/L Potassium 3.7 (3.5-5.1) mmol/L Chloride 104 (98-107) mmol/L Carbon Dioxide 24.0 (21.0-32.0) mmol/L Anion Gap 8 (5-15) BUN 9 (7-18) mg/dL Creatinine 0.55 (0.55-1.02) mg/dL Estim Creat Clear Calc 146.38 ml/min Est GFR (MDRD) Af Amer 171 (>60) mL/min Est GFR (MDRD) Non-Af 142 (>60) mL/min BUN/Creatinine Ratio 16.2 (10-20) RATIO Glucose 79 (74-106) mg/dL Calcium 7.0 L (8.5-10.1) mg/dL Total Bilirubin 0.30 (0.20-1.00) mg/dL AST 18 (15-37) U/L ALT 19 (13-56) U/L Alkaline Phosphatase 110 (45-117) U/L Total Protein 5.6 L (6.4-8.2) g/dL Albumin 2.1 L (3.2-5.0) g/dL Globulin 3.5 (2.2-4.2) g/dL Albumin/Globulin Ratio 0.6 L (0.9-2.4) RATIO U Random Total Protein (<11.9) mg/dL Urine Creatinine (NO RANGE EST.) mg/dL Protein/Creatinin Ratio (0-200) mg/g CRE POC Glucose 79 (70-110) mg/dL Blood Type Antibody Screen 11/27/20 11/27/20 11/27/20 Range/Units 17:34 14:20 14:05 WBC (4.4-11.0) K/mm3 RBC (4.2-5.4) M/mm3 Hgb (12.0-15.0) g/dL Hct (37-47) % MCV (81-99) fL MCH (27.0-32.0) pg MCHC (32-36) g/dL RDW Std Deviation (35.1-43.9) fl RDW Coeff of Yobani (11.6-14.6) % Plt Count (150-450) K/mm3 MPV (6.2-12.0) fl Immature Gran % (Auto) (0.0-0.9) % Neut % (Auto) (47-70) % Lymph % (Auto) (19-41) % Wilson % (Auto) (0-10) % Eos % (Auto) (0-5) % Baso % (Auto) (0-1) % Absolute Neuts (auto) (2.0-7.7) X10^3/uL Absolute Lymphs (auto) (0.83-4.51) X10^3/uL Nucleated RBC % (0-5) % Sodium (136-145) mmol/L Potassium (3.5-5.1) mmol/L Chloride (98-107) mmol/L Carbon Dioxide (21.0-32.0) mmol/L Anion Gap (5-15) BUN (7-18) mg/dL Creatinine (0.55-1.02) mg/dL Estim Creat Clear Calc ml/min Est GFR (MDRD) Af Amer (>60) mL/min Est GFR (MDRD) Non-Af (>60) mL/min BUN/Creatinine Ratio (10-20) RATIO Glucose (74-106) mg/dL Calcium (8.5-10.1) mg/dL Total Bilirubin (0.20-1.00) mg/dL AST (15-37) U/L ALT (13-56) U/L Alkaline Phosphatase (45-117) U/L Total Protein (6.4-8.2) g/dL Albumin (3.2-5.0) g/dL Globulin (2.2-4.2) g/dL Albumin/Globulin Ratio (0.9-2.4) RATIO U Random Total Protein (<11.9) mg/dL Urine Creatinine (NO RANGE EST.) mg/dL Protein/Creatinin Ratio (0-200) mg/g CRE POC Glucose 94 80 (70-110) mg/dL Blood Type A POSITIVE Antibody Screen NEGATIVE 01/19/21 01/19/21 01/19/21 Range/Units 12:10 11:51 11:51 WBC 9.7 (4.4-11.0) K/mm3 RBC 4.44 (4.2-5.4) M/mm3 Hgb 12.4 (12.0-15.0) g/dL Hct 37.6 (37-47) % MCV 84.7 (81-99) fL MCH 27.9 (27.0-32.0) pg MCHC 33.0 (32-36) g/dL RDW Std Deviation 40.1 (35.1-43.9) fl RDW Coeff of Yobani 13.1 (11.6-14.6) % Plt Count 356 (150-450) K/mm3 MPV 9.3 (6.2-12.0) fl Immature Gran % (Auto) 0.700 (0.0-0.9) % Neut % (Auto) 68.2 (47-70) % Lymph % (Auto) 23.0 (19-41) % Wilson % (Auto) 7.4 (0-10) % Eos % (Auto) 0.6 (0-5) % Baso % (Auto) 0.1 (0-1) % Absolute Neuts (auto) 6.6 (2.0-7.7) X10^3/uL Absolute Lymphs (auto) 2.23 (0.83-4.51) X10^3/uL Nucleated RBC % 0 (0-5) % Sodium 139 (136-145) mmol/L Potassium 3.9 (3.5-5.1) mmol/L Chloride 107 (98-107) mmol/L Carbon Dioxide 26.0 (21.0-32.0) mmol/L Anion Gap 6 (5-15) BUN 8 (7-18) mg/dL Creatinine 0.54 L (0.55-1.02) mg/dL Estim Creat Clear Calc ml/min Est GFR (MDRD) Af Amer 175 (>60) mL/min Est GFR (MDRD) Non-Af 145 (>60) mL/min BUN/Creatinine Ratio 14.7 (10-20) RATIO Glucose 74 (74-106) mg/dL Calcium 9.1 (8.5-10.1) mg/dL Total Bilirubin 0.20 (0.20-1.00) mg/dL AST 11 L (15-37) U/L ALT 24 (13-56) U/L Alkaline Phosphatase 139 H (45-117) U/L Total Protein 7.0 (6.4-8.2) g/dL Albumin 2.7 L (3.2-5.0) g/dL Globulin 4.3 H (2.2-4.2) g/dL Albumin/Globulin Ratio 0.6 L (0.9-2.4) RATIO U Random Total Protein < 6.0 (<11.9) mg/dL Urine Creatinine 23.40 (NO RANGE EST.) mg/dL Protein/Creatinin Ratio 239 H (0-200) mg/g CRE POC Glucose (70-110) mg/dL Blood Type Antibody Screen - Physical Exam Vitals/I&O's: Vital Signs Temp Pulse Resp BP Pulse Ox 99.1 F 100 16 124/60 H 98 11/29/20 03:35 11/29/20 03:40 11/29/20 03:35 11/29/20 03:40 11/29/20 03:35 Oxygen Delivery Method Room Air Weight: 302 lb Body Mass Index (BMI) 48.7 Intake and Output for Last 24 Hours 11/27/20 11/28/20 11/29/20 23:59 23:59 23:59 Intake Total 2547.50 / 2547.50 3290.84 / 3290.84 Output Total 1904 / 1904 1755 / 1755 Balance 643.50 / 643.50 1535.84 / 1535.84 General: Alert, Oriented x3, Cooperative, No apparent distress, Well developed, Well nourished HEENT: Atraumatic, PERRLA, EOMI, Normocephalic Neck: Supple, No JVD Lungs: Clear to auscultation, Normal air movement Cardiovascular: Regular rate, Regular Rhythm Abdomen: Bowel Sounds Present, Soft, Non Tender, Non-Distended, - - fundus firm, incision c/d/i Extremities: No edema, No Calf Tenderness Neurological: Cranial nerves II-XII grossly intact, Neuro grossly intact Psych/Mental Status: Normal Affect, Appropriate Microbiology Past 72 Hours 11/27/20 14:19 Mucosa - Nose SARS-CoV-2 Antigen (Rapid) - Final Current Medications Acetaminophen (Acetaminophen 500 Mg Tablet) 1,000 mg PO Q6H [facility] Last Admin: 11/29/20 04:51 Dose: 1,000 mg Documented by: Bisacodyl (Bisacodyl 10 Mg Suppository) 10 mg RECTAL UD PRN PRN Reason: If no BM Dextrose (Dextrose 50%-Water 25 Gm/50 Ml Disp.Syrin) 0 gm IV X1 PRN; Protocol PRN Reason: Hypoglycemia Enoxaparin Sodium (Enoxaparin 40 Mg/0.4 Ml Syringe) 40 mg SC BID [facility] Last Admin: 11/28/20 18:03 Dose: 40 mg Documented by: Glucagon (Glucagon 1 Mg/Ml Syringe) 1 mg IM .X1 PRN PRN Reason: Hypoglycemia Hydrocortisone (Hydrocortisone 2.5% Crm) 1 applic TOPICAL TID PRN PRN; Protocol PRN Reason: Discomfort Calcium Gluconate 1 gm/ N/A 10 mls @ 2 mls/min IV X1 PRN PRN Reason: Magnesium Toxicity Labetalol HCl (Labetalol 200 Mg Tablet) 300 mg PO BID [facility] Last Admin: 11/28/20 22:55 Dose: 300 mg Documented by: Midazolam HCl (Midazolam 2 Mg/2 Ml Syringe) 2 mg IV X1 PRN PRN Reason: Seizure Activity Naloxone HCl (Naloxone 0.4 Mg/Ml Syringe) 0.02 mg IV Q1M PRN PRN Reason: RR <10 and pt unresponsive Naproxen (Naproxen 250 Mg Tablet) 500 mg PO Q8H [facility] Last Admin: 11/29/20 06:45 Dose: 500 mg Documented by: Nifedipine (Nifedipine 60 Mg Tablet) 60 mg PO DAILY [facility] Last Admin: 11/28/20 12:10 Dose: 60 mg Documented by: Ondansetron HCl (Ondansetron 4 Mg/2 Ml Vial) 4 mg IV Q4H PRN PRN PRN Reason: Nausea Oxycodone HCl (Oxycodone 5 Mg Tablet) 5 - 10 mg PO Q4H PRN PRN PRN Reason: Pain Score 4-10 Prochlorperazine Edisylate (Prochlorperazine 10 Mg/2 Ml Vial) 10 mg IV Q6H PRN PRN PRN Reason: NAUSEA Senna/Docusate Sodium (Senna/Docusate Sodium 1 Tablet) 0 tablet PO DAILY [facility] Last Admin: 11/28/20 10:05 Dose: 1 tablet Documented by: Simethicone (Simethicone 80 Mg Tablet) 80 mg PO [facility] PRN PRN Reason: Indigestion/stomach pain Sodium Chloride (0.9% Saline Lock 10 Ml Syringe) 5 - 15 ml IV UD PRN PRN Reason: SALINE FLUSH Last Admin: 11/28/20 16:31 Dose: 10 ml Documented by: Medical Necessity - Tobacco Use Smoking Status: Never smoker Assessment/Plan All Active Problems (Last Reviewed 11/27/20 @ 10:02 by Viktoriya Wilson) Preeclampsia, severe (Acute) Threatened labor (Acute) History of tetanus, diphtheria, and acellular pertussis booster vaccination (Tdap) (Acute) Tachycardia (Acute) Elevated troponin (Acute) Obesity affecting (Acute) (Acute) Supervision of high-risk (Acute) BMI greater than 40 (Resolved) Cervical insufficiency during , antepartum (Resolved) Chronic hypertension affecting (Resolved) Genital herpes (Resolved) History of cervical cerclage (Resolved) History of gestational diabetes in prior , currently (Resolved) History of pre-eclampsia (Resolved) (Resolved) Right upper quadrant abdominal pain (Resolved) Supervision of high risk , antepartum (Resolved) s/p LTCS PPD # 1 1. routine post care 2. breast feeding- support given 3. rh positive 4. rubella immune 5. cHTN w/ superimposed preeclampsia with severe features - BPs controlled on home meds, asymptomatic, AM labs stable, UOP adequate, magnesium to be discontinued at 24 hours.
--- NOTE | 2020-11-29 08:17 | PN.OBGYN_ITS ---
Patient Problems: Active and Suspected Problems (Last Updated 11/29/20 @ 09:01 by Radha Eaton) History of tetanus, diphtheria, and acellular pertussis booster vaccination (Tdap) (Acute) 11/07/20 Tachycardia (Acute) admitted to hospital 10/17 Elevated troponin (Acute) 10/17- STO at [facility]. given bmz course. Subjective: Patient doing well without complaints. Tolerating PO. Ambulating and voiding without difficulty. feeding well. Denies chest pain, shortness of breath, calf pain/swelling, fevers, chills, lightheadedness. - Physical Exam Vitals/I&O's: Vital Signs Temp Pulse Resp BP Pulse Ox 99.1 F 100 16 124/60 H 98 11/29/20 03:35 11/29/20 03:40 11/29/20 03:35 11/29/20 03:40 11/29/20 03:35 Oxygen Delivery Method Room Air Weight: 302 lb Body Mass Index (BMI) 48.7 Intake and Output for Last 24 Hours 11/27/20 11/28/20 11/29/20 23:59 23:59 23:59 Intake Total 2547.50 / 2547.50 3290.84 / 3290.84 Output Total 1904 / 1904 1755 / 1755 Balance 643.50 / 643.50 1535.84 / 1535.84 General: Alert, Oriented x3 Microbiology Past 72 Hours 11/27/20 14:19 Mucosa - Nose SARS-CoV-2 Antigen (Rapid) - Final Current Medications Acetaminophen (Acetaminophen 500 Mg Tablet) 1,000 mg PO Q6H [facility] Last Admin: 11/29/20 04:51 Dose: 1,000 mg Documented by: Bisacodyl (Bisacodyl 10 Mg Suppository) 10 mg RECTAL UD PRN PRN Reason: If no BM Dextrose (Dextrose 50%-Water 25 Gm/50 Ml Disp.Syrin) 0 gm IV X1 PRN; Protocol PRN Reason: Hypoglycemia Enoxaparin Sodium (Enoxaparin 40 Mg/0.4 Ml Syringe) 40 mg SC BID [facility] Last Admin: 11/28/20 18:03 Dose: 40 mg Documented by: Glucagon (Glucagon 1 Mg/Ml Syringe) 1 mg IM .X1 PRN PRN Reason: Hypoglycemia Hydrocortisone (Hydrocortisone 2.5% Crm) 1 applic TOPICAL TID PRN PRN; Protocol PRN Reason: Discomfort Calcium Gluconate 1 gm/ N/A 10 mls @ 2 mls/min IV X1 PRN PRN Reason: Magnesium Toxicity Labetalol HCl (Labetalol 200 Mg Tablet) 300 mg PO BID [facility] Last Admin: 11/28/20 22:55 Dose: 300 mg Documented by: Midazolam HCl (Midazolam 2 Mg/2 Ml Syringe) 2 mg IV X1 PRN PRN Reason: Seizure Activity Naloxone HCl (Naloxone 0.4 Mg/Ml Syringe) 0.02 mg IV Q1M PRN PRN Reason: RR <10 and pt unresponsive Naproxen (Naproxen 250 Mg Tablet) 500 mg PO Q8H [facility] Last Admin: 11/29/20 06:45 Dose: 500 mg Documented by: Nifedipine (Nifedipine 60 Mg Tablet) 60 mg PO DAILY [facility] Last Admin: 11/28/20 12:10 Dose: 60 mg Documented by: Ondansetron HCl (Ondansetron 4 Mg/2 Ml Vial) 4 mg IV Q4H PRN PRN PRN Reason: Nausea Oxycodone HCl (Oxycodone 5 Mg Tablet) 5 - 10 mg PO Q4H PRN PRN PRN Reason: Pain Score 4-10 Prochlorperazine Edisylate (Prochlorperazine 10 Mg/2 Ml Vial) 10 mg IV Q6H PRN PRN PRN Reason: NAUSEA Senna/Docusate Sodium (Senna/Docusate Sodium 1 Tablet) 0 tablet PO DAILY [facility] Last Admin: 11/28/20 10:05 Dose: 1 tablet Documented by: Simethicone (Simethicone 80 Mg Tablet) 80 mg PO [facility] PRN PRN Reason: Indigestion/stomach pain Sodium Chloride (0.9% Saline Lock 10 Ml Syringe) 5 - 15 ml IV UD PRN PRN Reason: SALINE FLUSH Last Admin: 11/28/20 16:31 Dose: 10 ml Documented by: Medical Necessity - Tobacco Use Smoking Status: Never smoker Assessment/Plan All Active Problems (Last Updated 11/29/20 @ 09:01 by Radha Eaton) History of tetanus, diphtheria, and acellular pertussis booster vaccination ( Tdap) (Acute) Tachycardia (Acute) Elevated troponin (Acute) COVID-19 affecting , antepartum (Resolved) Cervical insufficiency during , antepartum (Resolved) Obesity affecting (Resolved) Preeclampsia, severe (Resolved) (Resolved) Supervision of high-risk (Resolved) Threatened labor (Resolved) BMI greater than 40 (Resolved) Cervical insufficiency during , antepartum (Resolved) Chronic hypertension affecting (Resolved) Genital herpes (Resolved) History of cervical cerclage (Resolved) History of gestational diabetes in prior , currently (Resolved) History of pre-eclampsia (Resolved) (Resolved) Right upper quadrant abdominal pain (Resolved) Supervision of high risk , antepartum (Resolved) s/p LTCS PPD # 2 1. routine post care 2. breast feeding- support given 3. rh positive 4. rubella immune preeclampsia with severe features- bps contorlled with home meds doing well
--- NOTE | 2020-11-29 08:17 | DCINST_ITS ---
Discharge Diet: No Restrictions Discharge Activity: May Not Drive - for 2 weeks, May not drive while taking narcotic pain medications., May Shower, May Take a Tub Bath - in 7 days May resume sexual activity in: 4-6 weeks Lifting Restrictions: 20 pounds Additional Activity Instructions:: Nothing in the vagina for 4-6 weeks. You may return to work/school in 6 weeks. Call your doctor if your incision/area has: Continuous Slow Oozing, Sudden Increased Bleeding, Increased Pain/ Swelling, Increased Redness, Foul Smelling Discharge Call your doctor if you observe: Fever of 101 or Higher, Using more than one pad per hour - for 2 hours Suture Line Care: Avoid Pulling/Pushing, Avoid Pinching/Bending Cleanse incision/area with: Keep Dressing Clean & Dry Additional Instructions: If you experience any of the following, contact your healthcare provider. * Bleeding that soaks a pad every hour for 2 hours * Fever 100.4 or higher * Unrelieved incision or abdominal pain * Swelling, redness, discharge or bleeding from your incision or episiotomy site * Your incision begins to separate * Problems urinating (including inability to urinate or burning while urinating). * Visual changes * Severe headache * Flu-like symptoms * Pain or redness in one of both of your breasts * Pain, warmth, tenderness or swelling in your legs, especially the calf area * Frequent nausea and vomiting * Symptoms of depression or anxiety If you experience any of the following, call 911 or go to the nearest Emergency Room. * Chest pain * Problems breathing * Seizure activity * Partial or complete paralysis of a body part, slurred speech, weakness or drooping of the face, or a sudden inability to walk or hold your balance Allergies/Adverse Reactions: Allergies No Known Allergies Allergy (Verified 11/27/20 10:02) Medications to take at Discharge multivitamin no.47-iron fum 27 mg-folate no.1 1 mg-dha 300 mg capsule 1 cap PO DAILY 01/16/20 blood pressure test kit-large See Rx Instructions .ROUTE .MEDSUPPLY #1 ea 09/20/20 nifedipine 60 mg tablet,extended release 24 hr 60 mg PO DAILY #30 tab 09/25/20 Aspirin [Aspirin, Baby] 81 mg PO DAILY@0800 10/17/20 Vit No.130/Iron/Folic [ Tablet] 1 ea PO DAILY 10/17/20 insulin detemir U-100 100 unit/mL (3 mL) subcutaneous pen 15 unit SC QHS #15 ml 11/12/20 pen needle, diabetic 32 gauge x See Rx Instructions .ROUTE .MEDSUPPLY #50 ea 11/12/20 [place] (PF) 275 mg/1.1 mL subcutaneous auto-injector See Rx Instructions .ROUTE .COMPLEX #1.1 ml NS 11/14/20 labetalol 200 mg tablet 300 mg PO BID #90 tab 11/15/20 Gissel 250 mg/mL (1 mL) intramuscular oil 250 mg IM ONCE #1 ml NS 11/16/20 Labetalol [Trandate (Beta Junior)] 300 mg PO BID tablet 11/29/20 NIFEdipine [Procardia Xl] 60 mg PO DAILY tablet 11/29/20 Naproxen [Naprosyn] 250 - 500 mg PO Q8H PRN PRN #30 tab 11/29/20 Oxycodone HCl/Acetaminophen [Percocet 5-325] 1 - 2 tablet PO Q6H PRN PRN 7 Days #15 tablet 11/29/20 The following prescriptions were given: Naproxen [Naprosyn] 250 - 500 mg PO Q8H PRN PRN #30 tab PRN Reason: MILD PAIN Transmission Status: Pending to [facility] Oxycodone HCl/Acetaminophen [Percocet 5-325] 1 - 2 tablet PO Q6H PRN PRN 7 Days #15 tablet PRN Reason: Pain Transmission Status: Sent to [facility] Follow-Up: Call to make an appointment with your doctor for an incision check in 1-2 weeks. You will also need a 6 week post- follow up appointment. Test results from this visit will be discussed in further detail at your follow- up appointment, if applicable. Please Follow Up With: Kaitlynn Metzger MD - Call to make an appointment for an incision check in 1-2 [phone] When: You will need a post- check in 6 weeks. Primary Care Physician: Opal Espinosa MD [Primary Care Provider] -
[2020-11-29] MEDS: Enoxaparin 40 MG/0.4 ML Syringe SC (09:40)
[2020-11-29] MEDS: NIFEdipine 60 MG Tablet PO (09:41)
[2020-11-29] MEDS: Senna/Docusate Sodium 1 Tablet PO (09:41)
[2020-11-29] MEDS: Labetalol 200 MG Tablet 300 MG PO (09:41)
[2020-11-29] MEDS: 0.9% Saline Lock 10 ML Syringe IV (09:43)
== END 2020-11-29 17:05 | disposition home or self-care (01) | DRG 539 ==
LOC: WPOUT 13:49 → WP 13:49
PROVIDERS: Nurse Practitioner Women's Health; Admitting Provider Obstetrics & Gynecology; PCP Internal Medicine; Referring Provider Obstetrics & Gynecology; Visit Provider Obstetrics & Gynecology
DX: O34.219 Maternal care for unspecified type scar from previous cesarean delivery (principal); O11.4 Pre-existing hypertension with pre-eclampsia, complicating childbirth; Z30.2 Encounter for sterilization; E66.9 Obesity, unspecified; O99.214 Obesity complicating childbirth; Z86.16 Personal history of COVID-19; O24.429 Gestational diabetes mellitus in childbirth, unspecified control; A60.00 Herpesviral infection of urogenital system, unspecified; O98.32 Other infections with a predominantly sexual mode of transmission complicating childbirth; Z3A.35 35 weeks gestation of pregnancy; Z37.0 Single live birth; O32.1XX0 Maternal care for breech presentation, not applicable or unspecified
CPT/HCPCS: 36415; 59025; 59050; 76819; 80053; 82570; 82962; 84156; 85025; 85027; 86850; 86900; 86901; 87426; 88302; 88307; 99218; J7120; A4216; G0378; J2405

== ENCOUNTER → 2021-01-10 | Outpatient (CLI) | payer MEDICAID, SELFPAY ==
[2021-01-10 11:17] VITALS: BMI 45.8
[2021-01-16 11:52] LABS: HPV Reflexed? NOT INDICATED
== END | disposition home or self-care (01) ==
PROVIDERS: PCP Internal Medicine; Referring Provider Obstetrics & Gynecology; Visit Provider Obstetrics & Gynecology
DX: Z12.4 Encounter for screening for malignant neoplasm of cervix (principal)
CPT/HCPCS: 88175; G0145

== ENCOUNTER → 2021-06-19 11:13 | Outpatient (CLI) | payer MEDICAID, SELFPAY ==
[2021-06-05 11:01] VITALS: BMI 45.4
[2021-06-19 12:32] LABS: Anion Gap 5 (5-15); BUN 12 mg/dL (7-18); BUN/Creat Ratio 21.3 RATIO (10-20); Calcium,Total 9.2 mg/dL (8.5-10.1); Chloride 103 mmol/L (98-107); Creatinine, Serum 0.56 mg/dL (0.55-1.02); EST Glomerular Filtration Rate 138 mL/min (>60); Est Glom Filt Rate - Afr Amer 167 mL/min (>60); Glucose 96 mg/dL (74-106); Potassium 4.1 mmol/L (3.5-5.1); Sodium Level 139 mmol/L (136-145)
== END ==
PROVIDERS: PCP Internal Medicine; Referring Provider Nurse Practitioner Family; Visit Provider Nurse Practitioner Family
DX: I10 Essential (primary) hypertension (principal)
CPT/HCPCS: 36415; 80048

== ENCOUNTER 2021-12-06 11:19 | Outpatient (CLI) | payer MEDICAID, SELFPAY ==
[2021-12-06 12:22] LABS: Absolute Lymphocyte Count 2.77 X10^3/uL (0.83-4.51); Absolute Neutrophil Count 3.3 X10^3/uL (2.0-7.7); Basophil# 0.02 X10^3/uL; Basophil% 0.3 % (0-1); Eosinophil# 0.11 X10^3/uL; Eosinophils% 1.7 % (0-5); Hematocrit 41.3 % (37-47); Hemoglobin 13.2 g/dL (12.0-15.0); Lymphocyte # 2.77 X10^3/ul (0.83-4.51); Lymphocyte % 41.7 % (19-41); Mean Corpuscular Hgb 27.7 pg (27.0-32.0); Mean Corpuscular Volume 86.6 fL (81-99); Mean Platelet Vol. 9.3 fl (6.2-12.0); Monocyte# 0.41 X10^3/uL; Monocyte% 6.2 % (0-10); NRBC Flagged by Analyzer 0 % (0-5); Neutrophil # 3.33 X10^3/uL (2.7-7.7); Neutrophil % 49.9 % (47-70); Platelet Count 375 K/mm3 (150-450); RBC Distribution Width CV 13.1 % (11.6-14.6); RBC Distribution Width SD 41.1 fl (35.1-43.9); Red Blood Count 4.77 M/mm3 (4.2-5.4); White Blood Count 6.7 K/mm3 (4.4-11.0)
[2021-12-06 13:16] LABS: ALB/GLOB Ratio 0.8 RATIO (0.9-2.4); AST(SGOT) 19 U/L (15-37); Alanine Aminotransfer ALT/SGPT 49 U/L (13-56); Albumin, Serum 3.4 g/dL (3.2-5.0); Alkaline Phosphatase 80 U/L (45-117); Anion Gap 5 (5-15); BUN 13 mg/dL (7-18); BUN/Creat Ratio 20.1 RATIO (10-20); Calcium,Total 8.5 mg/dL (8.5-10.1); Chloride 104 mmol/L (98-107); Cholesterol 177 mg/dL (200); Creatinine, Serum 0.65 mg/dL (0.55-1.02); EST Glomerular Filtration Rate 117 mL/min (>60); Est Glom Filt Rate - Afr Amer 142 mL/min (>60); Globulin 4.1 g/dL (2.2-4.2); Glucose 92 mg/dL (74-106); High Density Lipoprotein 50 mg/dL; Potassium 3.5 mmol/L (3.5-5.1); Protein, Total 7.5 g/dL (6.4-8.2); Sodium Level 137 mmol/L (136-145); Thyroid Stim Hormone (TSH) 0.89 uIU/mL (0.358-3.74); Triglycerides 85 mg/dL; Very Low Density Lipoprotein 17 mg/dL (5-40)
== END 2021-12-06 23:59 | disposition short-term general hospital (02) ==
LOC: BIMLAB 11:20
PROVIDERS: PCP Internal Medicine; Referring Provider Nurse Practitioner Family; Visit Provider Nurse Practitioner Family
DX: I10 Essential (primary) hypertension (principal); E66.01 Morbid (severe) obesity due to excess calories
CPT/HCPCS: 36415; 80053; 80061; 84443; 85025

== ENCOUNTER 2022-01-03 19:53 | Emergency (ER) | payer MEDICAID, SELFPAY ==
[2022-01-03 19:53] VITALS: BP 164/105; PULSE 96; RESP 16; TEMP 36.4; O2SAT 98; BMI 44.9
--- NOTE | 2022-01-03 22:10 | EDS_ITS ---
HPI History of Present Illness Chief Complaint: Laceration Informant: patient Narrative Narrative: Patient is a 26-year-old right-hand dominant female present with laceration to her right second knuckle. She was doing dishes when she cut herself on a broken glass cup. Initially she had some tingling has not had any since. This happened approximately 7 PM. He took 2 [id number] Tylenol before coming in. No other complaints or injuries. No issue with bleeding that she is aware of. Is on any blood thinners. Tetanus Immunization: <5 years [facility] Medical History BMI greater than 40 delivery due to maternal disorder Chronic hypertension affecting History of gestational diabetes in prior , currently History of pre-eclampsia HTN (hypertension) Obesity, morbid, BMI 40.0-49.9 Right upper quadrant abdominal pain Home Medications biotin 10,000 mcg disintegrating tablet 10,000 mcg PO DAILY 12/06/21 [History Last Taken Unknown] cinnamon bark 500 mg capsule 500 mg PO DAILY 12/06/21 [History Last Taken Unk nown] hydrochlorothiazide 25 mg tablet 25 mg PO QAM #90 tablet 12/06/21 [Rx Last Taken Unknown] lisinopril 40 mg tablet 40 mg PO QDAY #90 tab 12/06/21 [Rx Last Taken Unknown] Allergy/AdvReac Type Severity Reaction Status Date / Time No Known Allergies Allergy Verified 01/03/22 19:55 Family History Mother Diabetes Hypertension Aunt Breast cancer Uncle Colon cancer Father Hypertension Surgical History History of bilateral fallopian tube excision History of History of cervical cerclage History of cholecystectomy History of tonsillectomy Hx of bilateral salpingectomy Social History adopted: No household members: family housing: house number of children: 1 current occupational status: employed current occupation: [employer] pets and animals: No history of recent travel: No sexually active: Yes Smoking Status: Never smoker second hand exposure: Yes alcohol intake: current details: social- not while substance use type: does not use caffeine: Yes what type of physical activity do you participate in: none seatbelt use: always do you feel safe at home: Yes additional social history: Spouse: Dia simons ROS ROS ED Constitutional Constitutional ED: Denies chills or fever(s) Eyes Eyes: Denies change in vision Cardiovascular Cardiovascular: Denies chest pain Respiratory/Chest Respiratory/Chest: Denies dyspnea Gastrointestinal Gastrointestinal: Denies nausea or vomiting Musculoskeletal Musculoskeletal: Denies arthralgias or myalgias Integumentary Reports other Details: laceration Neurologic Neurologic: Denies headache(s), paresthesias or weakness Psychiatric Psychiatric: Denies depression Hematologic/Lymphatic Hematologic/Lymphatic: Denies easy bleeding or easy bruising EXAM Physical Exam Const Vital Signs: 01/03/22 19:53 Temperature 97.6 F L Temperature Source Temporal Pulse Rate 96 Respiratory Rate 16 Blood Pressure 164/105 H Blood Pressure Mean 124 Pulse Ox 98 Oxygen Delivery Method Room Air Positive well nourished and well developed General Appearance ED: well developed HEENT atraumatic Eyes PERRL Neck full ROM Chest Wall inspection of chest normal Resp normal respiratory effort Cardio regular rhythm Cardio Narrative: 2+ bilateral radial pulses Rate: regular rate Extremity normal to inspection and full ROM Extremity Narrative: Normal flexion and extension of the right index finger. No obvious deformity. Neuro oriented x3, moves all extremities, no focal motor deficits and no sensory deficits noted Sensorium / Orientation: alert Skin Skin Narrative: Patient is a 2-1/2 cm full-thickness semicircular/flap laceration over the right second MCP joint. No active bleeding at this time. No obvious exposed tendon or ligaments. PROC Procedures Lacerations Right hand: Depth: Sub Q Shape: Flap Prep: Sterile Conditions and Chlorhexadine Laceration repair: Irrigated, Lidocaine and Local Irrigated (ml): 500 Number of Sutures/Josephine: 7 Suture Information: Ethilon, Simple and 4-0 MDM MDM MDM Narrative Medical decision making narrative: Patient evaluated for laceration to her right hand. She appears nontoxic in no acute distress. She is mildly hypertensive but does have a history of hypertension. She is neurovascularly intact. Lacera tion repair performed. See procedure note. Patient discharged home with return precautions and wound care instructions. Discharge Plan Triage Chief Complaint: Laceration ED Provider: Desi Mathews Dx/Rx/DC Orders Clinical Impression: Laceration of right hand Instructions: ED Laceration, Hand: All Closures Prescriptions: No Action cinnamon bark [Cinnamon] 500 mg capsule 500 mg PO DAILY RF: 0 biotin 10,000 mcg tablet,disintegrating 10,000 mcg PO DAILY RF: 0 lisinopril 40 mg tablet 40 mg PO QDAY Qty: 90 RF: 4 hydrochlorothiazide 25 mg tablet 25 mg PO QAM Qty: 90 RF: 4 Primary Care Provider: Opal Espinosa Referrals: Opal Espinosa MD [Primary Care Provider] - Activity Restrictions/Additional Instructions: Stitches should be removed in 10 days. Return to the emergency room, go to an urgent care or go to primary care doctor for removal. Disposition Disposition: Home, Self Care Discharge Date/Time: 01/03/22 23:14
[2022-01-03] MEDS: Lidocaine 1% /Epi 1:100 (20ml) 20 ML Vial INFILT (23:00)
== END 2022-01-03 23:14 | disposition home or self-care (01) ==
PROVIDERS: Emergency Provider Emergency Medicine; PCP Internal Medicine; Visit Provider Emergency Medicine
DX: S61.411A Laceration without foreign body of right hand, initial encounter (principal); Z68.41 Body mass index [BMI] 40.0-44.9, adult; W25.XXXA Contact with sharp glass, initial encounter; Y93.G1 Activity, food preparation and clean up; I10 Essential (primary) hypertension; E66.9 Obesity, unspecified; Z79.899 Other long term (current) drug therapy
CPT/HCPCS: 12001; 99284

== ENCOUNTER → 2023-05-05 | Outpatient (CLI) | payer MEDICAID, SELFPAY ==
[2023-05-05 12:49] LABS: Absolute Lymphocyte Count 2.53 X10^3/uL (0.83-4.51); Absolute Neutrophil Count 4.9 X10^3/uL (2.0-7.7); Basophil# 0.03 X10^3/uL; Basophil% 0.4 % (0-1); Eosinophil# 0.12 X10^3/uL; Eosinophils% 1.5 % (0-5); Hematocrit 43.8 % (37-47); Lymphocyte # 2.53 X10^3/ul (0.83-4.51); Lymphocyte % 31.3 % (19-41); Mean Corpuscular Hgb 28.6 pg (27.0-32.0); Mean Corpuscular Volume 89.6 fL (81-99); Monocyte# 0.52 X10^3/uL; Monocyte% 6.4 % (0-10); NRBC Flagged by Analyzer 0 % (0-5); Neutrophil # 4.86 X10^3/uL (2.7-7.7); Neutrophil % 60.2 % (47-70); Platelet Count 324 K/mm3 (150-450); RBC Distribution Width CV 13.2 % (11.6-14.6); RBC Distribution Width SD 43.4 fl (35.1-43.9); Red Blood Count 4.89 M/mm3 (4.2-5.4); White Blood Count 8.1 K/mm3 (4.4-11.0)
[2023-05-05 14:00] LABS: ALB/GLOB Ratio 0.9 RATIO (0.9-2.4); AST(SGOT) 14 U/L (15-37); Alanine Aminotransfer ALT/SGPT 25 U/L (13-56); Albumin, Serum 3.4 g/dL (3.2-5.0); Alkaline Phosphatase 73 U/L (45-117); Anion Gap 2 (5-15); BUN 14 mg/dL (7-18); BUN/Creat Ratio 22.8 RATIO (10-20); Calcium,Total 8.9 mg/dL (8.5-10.1); Chloride 110 mmol/L (98-107); Cholesterol 142 mg/dL (200); Creatinine, Serum 0.61 mg/dL (0.55-1.02); EST Glomerular Filtration Rate 124 mL/min (>60); Est Glom Filt Rate - Afr Amer 150 mL/min (>60); Globulin 3.9 g/dL (2.2-4.2); Glucose 83 mg/dL (74-106); High Density Lipoprotein 48 mg/dL; Potassium 4.1 mmol/L (3.5-5.1); Protein, Total 7.3 g/dL (6.4-8.2); Sodium Level 139 mmol/L (136-145); Thyroid Stim Hormone (TSH) 0.83 uIU/mL (0.358-3.74); Triglycerides 71 mg/dL; Very Low Density Lipoprotein 14 mg/dL (5-40)
== END | disposition home or self-care (01) ==
LOC: BIMLAB 10:58
PROVIDERS: PCP Internal Medicine; Referring Provider Nurse Practitioner Family; Visit Provider Nurse Practitioner Family
DX: I10 Essential (primary) hypertension (principal); E66.01 Morbid (severe) obesity due to excess calories
CPT/HCPCS: 36415; 80053; 80061; 84443; 85025

== ENCOUNTER → 2023-06-05 | Outpatient (CLI) | payer MEDICAID, SELFPAY ==
[2023-06-05 12:24] LABS: Hematocrit 42.5 % (37-47); Mean Corp Hgb Conc 32.9 g/dL (32-36); Mean Corpuscular Hgb 29.3 pg (27.0-32.0); Mean Corpuscular Volume 88.9 fL (81-99); Mean Platelet Vol. 9.8 fl (6.2-12.0); Platelet Count 306 K/mm3 (150-450); RBC Distribution Width CV 12.7 % (11.6-14.6); RBC Distribution Width SD 41.5 fl (35.1-43.9); Red Blood Count 4.78 M/mm3 (4.2-5.4); White Blood Count 7.9 K/mm3 (4.4-11.0)
[2023-06-05 12:41] LABS: Vitamin B12 1029 pg/mL (211-911); Vitamin D,25 Hydroxy 71.5 ng/mL
[2023-06-05 13:18] LABS: ALB/GLOB Ratio 0.9 RATIO (0.9-2.4); AST(SGOT) 16 U/L (15-37); Alanine Aminotransfer ALT/SGPT 23 U/L (13-56); Albumin, Serum 3.6 g/dL (3.2-5.0); Alkaline Phosphatase 76 U/L (45-117); Anion Gap 7 (5-15); BUN 19 mg/dL (7-18); BUN/Creat Ratio 28.2 RATIO (10-20); Calcium,Total 8.6 mg/dL (8.5-10.1); Chloride 103 mmol/L (98-107); Cholesterol 140 mg/dL (200); Creatinine, Serum 0.67 mg/dL (0.55-1.02); EST Glomerular Filtration Rate 111 mL/min (>60); Est Glom Filt Rate - Afr Amer 134 mL/min (>60); Ferritin 58 ng/mL (8-252); Glucose 83 mg/dL (74-106); High Density Lipoprotein 50 mg/dL; Magnesium 2.3 mg/dL (1.6-2.6); Potassium 3.6 mmol/L (3.5-5.1); Protein, Total 7.6 g/dL (6.4-8.2); Sodium Level 136 mmol/L (136-145); Triglycerides 61 mg/dL; Very Low Density Lipoprotein 12 mg/dL (5-40)
[2023-06-10 06:09] LABS: Zinc, Plasma or Serum 69 ug/dL (44-115)
== END | disposition home or self-care (01) ==
PROVIDERS: PCP Internal Medicine; Referring Provider Registered Nurse Nephrology; Visit Provider Registered Nurse Nephrology
DX: I10 Essential (primary) hypertension (principal); E66.01 Morbid (severe) obesity due to excess calories; K21.9 Gastro-esophageal reflux disease without esophagitis; Z68.37 Body mass index [BMI] 37.0-37.9, adult
CPT/HCPCS: 36415; 80053; 80061; 82306; 82607; 82728; 82746; 83735; 84425; 84630; 85027

== ENCOUNTER → 2023-09-18 | Outpatient (CLI) | payer MEDICAID, SELFPAY ==
[2023-09-18 12:58] LABS: Vitamin D,25 Hydroxy 60.5 ng/mL
== END | disposition home or self-care (01) ==
LOC: BIMLAB 10:43
PROVIDERS: PCP Internal Medicine; Referring Provider Registered Nurse Nephrology; Visit Provider Registered Nurse Nephrology
DX: E61.7 Deficiency of multiple nutrient elements (principal)
CPT/HCPCS: 36415; 82306

== ENCOUNTER → 2023-12-01 | Outpatient (CLI) | payer MEDICAID, SELFPAY ==
[2023-12-01 16:32] LABS: Hematocrit 40.3 % (37-47); Hemoglobin 13.1 g/dL (12.0-15.0); Mean Corp Hgb Conc 32.5 g/dL (32-36); Mean Corpuscular Hgb 28.3 pg (27.0-32.0); Mean Platelet Vol. 9.3 fl (6.2-12.0); Platelet Count 351 K/mm3 (150-450); RBC Distribution Width SD 38.6 fl (35.1-43.9); Red Blood Count 4.63 M/mm3 (4.2-5.4); White Blood Count 7.6 K/mm3 (4.4-11.0)
[2023-12-01 16:47] LABS: Vitamin B12 761 pg/mL (211-911); Vitamin D,25 Hydroxy 62.6 ng/mL
[2023-12-01 17:54] LABS: AST(SGOT) 13 U/L (15-37); Alanine Aminotransfer ALT/SGPT 23 U/L (13-56); Albumin, Serum 3.5 g/dL (3.2-5.0); Alkaline Phosphatase 59 U/L (45-117); Anion Gap 3 (5-15); BUN 22 mg/dL (7-18); BUN/Creat Ratio 35.1 RATIO (10-20); Calcium,Total 9.4 mg/dL (8.5-10.1); Chloride 105 mmol/L (98-107); Cholesterol 170 mg/dL (200); Creatinine, Serum 0.63 mg/dL (0.55-1.02); EST Glomerular Filtration Rate 120 mL/min (>60); Est Glom Filt Rate - Afr Amer 145 mL/min (>60); Ferritin 36 ng/mL (8-252); Globulin 3.5 g/dL (2.2-4.2); Glucose 87 mg/dL (74-106); High Density Lipoprotein 55 mg/dL; Iron 90 ug/dL (50-170); Magnesium 2.4 mg/dL (1.6-2.6); Potassium 3.6 mmol/L (3.5-5.1); Sodium Level 138 mmol/L (136-145); Triglycerides 62 mg/dL; Very Low Density Lipoprotein 12 mg/dL (5-40)
[2023-12-07 02:07] LABS: Vitamin B1, Thiamine 135.1 nmol/L (66.5-200.0); Zinc, Plasma or Serum 60 ug/dL (44-115)
== END | disposition home or self-care (01) ==
LOC: BIMLAB 14:50
PROVIDERS: PCP Internal Medicine; Visit Provider Internal Medicine
DX: E61.7 Deficiency of multiple nutrient elements (principal)
CPT/HCPCS: 36415; 80053; 80061; 82306; 82607; 82728; 82746; 83540; 83735; 84425; 84630; 85027